=== PATIENT | female | born 1970 | race American Indian/Alaskan Native ===

== ENCOUNTER 2017-09-12 09:12 | Emergency (ER) | payer OTHER ==
[2017-09-12] MEDS ORDERED: ZOFRAN ODT ONE (09:38)
[2017-09-12] MEDS ORDERED: ZOFRAN ODT PO ONE (09:42)
[2017-09-12 10:01] LABS: Basophils # (Auto) 0.2 K/mm3 (0.0-0.1); Basophils % (Auto) 1.4 % (0.0-1.8); Eosinophils # (Auto) 0.1 K/mm3 (0.0-0.4); Eosinophils % (Auto) 0.4 % (0.0-4.3); Hematocrit 44.1 % (30.3-42.9); Hemoglobin 14.5 gm/dl (10.1-14.3); Lymphocytes # (Auto) 1.7 K/mm3 (1.2-5.4); Mean Corpuscular HGB Conc 33 % (30-34); Mean Corpuscular Hemoglobin 30 pg (28-32); Mean Corpuscular Volume 89 fl (79-97); Monocytes # (Auto) 0.5 K/mm3 (0.0-0.8); Monocytes % (Auto) 3.2 % (0.0-7.3); Platelet Count 332 K/mm3 (140-440); Red Blood Count 4.94 M/mm3 (3.65-5.03); Red Cell Distribution Width 14.7 % (13.2-15.2)
[2017-09-12 10:15] LABS: Alanine Aminotransferase 8 units/L (7-56); Albumin 4.3 g/dL (3.9-5); BUN/Creatinine Ratio 17; Blood Urea Nitrogen 10 mg/dL (7-17); Calcium 9.6 mg/dL (8.4-10.2); Hemolysis Index 16
[2017-09-12] MEDS ORDERED: NACL 0.9% 1000 ML 1,000 ML IV ONE (10:30)
[2017-09-12] MEDS ORDERED: APRESOLINE IV ONE (10:31)
[2017-09-12] MEDS ORDERED: MORPHINE IV ONE (11:12)
[2017-09-12] MEDS ORDERED: ZOFRAN IV ONE ×2 (11:12→13:51)
[2017-09-12] MEDS ORDERED: MORPHINE ONE (11:13)
[2017-09-12] MEDS ORDERED: ZOFRAN ONE ×2 (11:13→13:52)
--- NOTE | 2017-09-12 12:44 | Emergency Department Report ---
HPI - General Chief Complaint: Abdominal Pain Time Seen by Provider: 09/12/17 10:04 - HPI HPI: The patient is a 46-year-old female who presents for evaluation of abdominal pain. The patient reports left lower abdominal pain since yesterday afternoon, approximately 24 hours prior to my evaluation. Her pain is moderate in severity , crampy in quality, exacerbated with retching, and associated with nausea, vomiting, and loose watery stools. The patient denies fever, chills, night sweats, blood in the stool, dark tarry stool, dysuria, hematuria, flank pain, genital discharge, inability to pass flatus. ED Past Medical Hx - Past Medical History Hx Hypertension: Yes Hx Congestive Heart Failure: No Hx Diabetes: No Hx Asthma: No Hx COPD: No - Surgical History Additional Surgical History: X 5 - Social History Smoking Status: Current Every Day Smoker Substance Use Type: Alcohol - Medications Home Medications: Home Medications Medication Instructions Recorded Confirmed Last Taken Type Ciprofloxacin HCl [Ciprofloxacin 500 mg PO Q12H #14 tab 09/12/17 Unknown Rx TAB] Ondansetron [Zofran TAB] 4 mg PO Q8HR PRN #20 tablet 09/12/17 Unknown Rx metroNIDAZOLE [Flagyl] 500 mg PO Q12HR #14 tab 09/12/17 Unknown Rx traMADol [Ultram 50 MG tab] 50 mg PO Q6HR PRN #15 tablet 09/12/17 Unknown Rx ED Review of Systems ROS: Stated complaint: ABD Other details as noted in HPI Constitutional: denies: fever ENT: denies: throat or neck pain Respiratory: denies: cough, shortness of breath Cardiovascular: denies: chest pain Endocrine: denies unexplained weight loss or gain Gastrointestinal: reports abdominal pain, nausea Genitourinary: denies: dysuria Musculoskeletal: denies: leg swelling Skin: denies: rash Neurological: denies: headache Hematological/Lymphatic: denies: easy bleeding or easy bruising Psych: denies sadness or hopelessness Physical Exam - Physical Exam Vital Signs: Vital Signs 09/12/17 09/12/17 09/12/17 09:34 10:03 10:15 Temperature 97.4 F L Pulse Rate 67 Respiratory 20 18 Rate Blood Pressure 196/121 Blood Pressure [Left] O2 Sat by Pulse 100 100 Oximetry 09/12/17 09/12/17 09/12/17 10:16 10:17 10:30 Temperature Pulse Rate 62 59 L Respiratory 19 20 Rate Blood Pressure 150/119 150/119 Blood Pressure 150/119 [Left] O2 Sat by Pulse 100 100 100 Oximetry 09/12/17 09/12/17 09/12/17 10:46 10:52 11:00 Temperature Pulse Rate 63 71 Respiratory 18 Rate Blood Pressure 150/119 150/119 150/119 Blood Pressure [Left] O2 Sat by Pulse 100 100 Oximetry Physical Exam: General: well-nourished, well-developed, no acute distress Head: Normocephalic, atraumatic Eyes: normal sclera ENT: Mucous membranes are pale and dry Neck: No neck stiffness, no cervical adenopathy Respiratory: Breath sounds equal bilaterally, no wheezing, rales, or rhonchi Cardio: S1 and S2 present, no murmurs, rubs, gallops, capillary refill is delayed Abdomen: Normoactive bowel sounds, soft abdomen, left upper quadrant tenderness to palpation present, no rigidity, no guarding or rebound tenderness Chest WALL/Back: No tenderness to palpation of the chest wall, no CVA tenderness with percussion Musc: No pitting edema Skin: No rash Neuro: no facial drooping, normal speech Psych: Normal affect ED Course Vital Signs 09/12/17 09/12/17 09/12/17 09:34 10:03 10:15 Temperature 97.4 F L Pulse Rate 67 Respiratory 20 18 Rate Blood Pressure 196/121 Blood Pressure [Left] O2 Sat by Pulse 100 100 Oximetry 09/12/17 09/12/17 09/12/17 10:16 10:17 10:30 Temperature Pulse Rate 62 59 L Respiratory 19 20 Rate Blood Pressure 150/119 150/119 Blood Pressure 150/119 [Left] O2 Sat by Pulse 100 100 100 Oximetry 09/12/17 09/12/17 09/12/17 10:46 10:52 11:00 Temperature Pulse Rate 63 71 Respiratory 18 Rate Blood Pressure 150/119 150/119 150/119 Blood Pressure [Left] O2 Sat by Pulse 100 100 Oximetry ED Medical Decision Making - Lab Data Result diagrams: 09/12/17 09:40 09/12/17 09:40 - Medical Decision Making The patient was seen and examined by myself. The patient is placed on a equipment monitor phototypesetting and continuous pulse ox. On initial evaluation, the patient was found to be in no distress. Evaluation orders were placed. The patient is given IV normal saline fluid bolus, Zofran for nausea, and IV pain medicine. Lab results revealed mildly elevated WBC 15, and elevated hemoglobin and hematocrit, suggestive of hemoconcentration consistent with exam findings of dehydration. Otherwise lab results are concerning including negative test, and normal LFTs, lipase, urinalysis. The patient denies fever, headache, neck pain, paresthesias, focal motor weakness, blurry vision, ear pain, tinnitus , chest pain, hemoptysis, dyspnea, abdominal pain, confusion or altered mental status, or recent URI or diarrhea. Critical care attestation.: If time is entered above; I have spent that time in minutes in the direct care of this critically ill patient, excluding procedure time. ED Disposition Clinical Impression: Acute abdominal pain in left lower quadrant, Nausea and vomiting in adult patient, Dehydration, mild Disposition: DC-01 TO HOME OR SELFCARE Is pt being admited?: No Does the pt Need Aspirin: No Condition: Stable Instructions: Abdominal Pain (ED), Gastroenteritis (ED), Acute Nausea and Vomiting (ED), Food Poisoning (ED) Referrals: PRIMARY CARE, [Primary Care Provider] - 3-5 Days Time of Disposition: 14:39
[2017-09-12 14:01] VITALS: BP 169/83
[2017-09-12 14:32] LABS: Bacteria,Urine 1+ /HPF (Negative); Bilirubin,Urine NEG (Negative); Blood,Urine LG (Negative); Color,Urine Red (Yellow); Mucus,Urine FEW /HPF; Urobilinogen,Urine < 2.0 mg/dL (<2.0)
== END 2017-09-12 15:17 | disposition home or self-care (01) ==
LOC: ED 09:12
DX: E86.0 Dehydration (principal); R10.32 Left lower quadrant pain; R11.2 Nausea with vomiting, unspecified; I10 Essential (primary) hypertension; F17.200 Nicotine dependence, unspecified, uncomplicated
CPT/HCPCS: 36415; 80053; 81001; 84703; 85025; 96361; 96374; 96375; 96376; 99284; J0360; J2270; J2405; J7030; Q0162

== ENCOUNTER 2017-09-14 11:05 | Emergency (ER) | payer SELFPAY ==
[2017-09-14 11:56] LABS: Basophils # (Auto) 0.2 K/mm3 (0.0-0.1); Basophils % (Auto) 1.1 % (0.0-1.8); Eosinophils % (Auto) 0.3 % (0.0-4.3); Hematocrit 44.9 % (30.3-42.9); Hemoglobin 14.8 gm/dl (10.1-14.3); Lymphocytes # (Auto) 2.1 K/mm3 (1.2-5.4); Lymphocytes % (Auto) 14.6 % (13.4-35.0); Mean Corpuscular HGB Conc 33 % (30-34); Mean Corpuscular Hemoglobin 29 pg (28-32); Mean Corpuscular Volume 89 fl (79-97); Monocytes # (Auto) 0.7 K/mm3 (0.0-0.8); Monocytes % (Auto) 5.1 % (0.0-7.3); Platelet Count 403 K/mm3 (140-440); Red Blood Count 5.07 M/mm3 (3.65-5.03); Red Cell Distribution Width 14.5 % (13.2-15.2)
[2017-09-14 12:10] LABS: Alanine Aminotransferase 8 units/L (7-56); Albumin 4.4 g/dL (3.9-5); BUN/Creatinine Ratio 27; Blood Urea Nitrogen 19 mg/dL (7-17); Calcium 10.2 mg/dL (8.4-10.2); Hemolysis Index 7
[2017-09-14] MEDS ORDERED: BENTYL IM ONE (13:48)
[2017-09-14] MEDS ORDERED: NACL 0.9% 1000 ML 1,000 ML IV ONE (13:48)
[2017-09-14] MEDS ORDERED: TORADOL IV ONE (13:48)
[2017-09-14] MEDS ORDERED: ZOFRAN IV ONE (13:48)
--- NOTE | 2017-09-14 13:51 | Emergency Department Report ---
Blank Doc - Documentation Documentation: Vision is a 46-year-old female past medical history of hypertension who is presenting with abdominal pain. Patient states pain started approximately 3 days ago and crampy diffuse with nausea vomiting. Patient denies any diarrhea or fever or cough. Patient states that the pain is a 8 out of 10 in severity and is constant. There is no radiation. She states she was here 2 days ago and was hydrated and given pains meds but the pain is returned she's come back for evaluation.
--- NOTE | 2017-09-14 14:53 | Cat Scan Report ---
CT ABDOMEN PELVIS WITH CONTRAST: HISTORY: Abdominal pain, nausea and vomiting. COMPARISON: none. TECHNIQUE: Helical CT in 1.25mm intervals following IV contrast. Sagittal and coronal reconstructions. FINDINGS: Lung bases: Normal. Liver: Normal. 2 cm cyst in the right hepatic lobe is noted Biliary system: Normal. Pancreas: Normal. Spleen: Normal. Kidneys/ureters/bladder: Normal. Adrenal glands: Normal. Aorta: Normal. Intestines: Normal. Appendix: Normal. Pelvic viscera: The uterus is mildly enlarged with scattered uterine fibroids near the uterine fundus. The ovaries are unremarkable. Ascites: None. Adenopathy: None. Musculoskeletal: Normal. IMPRESSION: No acute inflammatory process is appreciated. Mild uterine fibroid disease.
--- NOTE | 2017-09-14 16:30 | Emergency Department Report ---
Vomiting/Diarrhea - HPI Chief Complaint: Abdominal Pain Stated Complaint: N/V ABD PAIN Time Seen by Provider: 09/14/17 13:37 Duration: Today Severity: moderate Nausea/Vomiting Severity: Moderate Diarrhea Severity: Mild Pain Location: Generalized Pain Severity: Moderate Symptoms: Yes Watery Diarrhea (once), Yes Able to Tolerate Fluids, Yes Recent use of Antibiotics (Currently taking flagyl and cipro), No Bloody diarrhea, No Fever, No Recent Unusual Foods, No Recent Untreated Water, No Family w/ Similar Symptoms, No Contacts w/ Similar Symptoms, No Rash, No Hematuria, No Recent URI Symptoms Other History: This is a 46 y.o. female that presents with nausea and vomiting since this morning. Patient reports being treated for gastritis Sunday with metronidazole and cipro. She woke up this morning and ate fruit then took medication and felt bad every since. Pain and nausea started 30 minutes after taking medication. Stomach is hurting everywhere. She had one episode of diarrhea here in ER but none prior. Denies chest pain, SOB, fever, bloody stool , and urgency or frequency. ED Review of Systems ROS: Stated complaint: N/V ABD PAIN Other details as noted in HPI Constitutional: denies: chills, fever Respiratory: denies: cough, shortness of breath, wheezing Cardiovascular: denies: chest pain, palpitations Gastrointestinal: abdominal pain, nausea. denies: vomiting, diarrhea, constipation Musculoskeletal: denies: back pain, joint swelling, arthralgia Skin: denies: rash, lesions Neurological: denies: headache, weakness, paresthesias Psychiatric: denies: anxiety, depression ED Past Medical Hx - Past Medical History Hx Hypertension: Yes Hx Congestive Heart Failure: No Hx Diabetes: No Hx Asthma: No Hx COPD: No - Surgical History Additional Surgical History: X 5 - Social History Smoking Status: Current Every Day Smoker Substance Use Type: Alcohol - Medications Home Medications: Home Medications Medication Instructions Recorded Confirmed Last Taken Type Ciprofloxacin HCl [Ciprofloxacin 500 mg PO Q12H #14 tab 09/12/17 Unknown Rx TAB] Ondansetron [Zofran TAB] 4 mg PO Q8HR PRN #20 tablet 09/12/17 Unknown Rx metroNIDAZOLE [Flagyl] 500 mg PO Q12HR #14 tab 09/12/17 Unknown Rx traMADol [Ultram 50 MG tab] 50 mg PO Q6HR PRN #15 tablet 09/12/17 Unknown Rx Metoprolol Tartrate 25 mg PO BID #30 tablet 09/14/17 Unknown Rx Vomiting Diarrhea Exam - Exam General: Vital signs noted. No distress. Alert and acting appropriately. HEENT: Yes Pharyngeal Erythema, Yes Moist Mucous Membranes, No Pharyngeal Exudates, No Rhinorrhea, No Conjuctival Injection, No Frontal Tenderness, No Maxillary Tenderness Neck: No Adenopathy, No Rigidity Lungs: Yes Clear Lung Sounds, Yes Good Air Exchange, Yes Cough, No Wheezes, No Stridor, No Nasal Flaring, No Retractions, No Use of Accessory Muscles Heart exam: Regular: Yes, Murmur: No, Tachycardia: No Abdomen: Tenderness: Yes (LLQ), Peritoneal Signs: No, Distention: No, Hyperactive Bowel sounds: No Skin exam: Rash: No, Edema: No, Normal turgor: Yes Neurologic: Alert and oriented, no deficits. Musculoskeletal: Unremarkable. ED Course Vital Signs 09/14/17 09/14/17 11:33 15:24 Temperature 98.5 F Pulse Rate 98 H 74 Respiratory 18 16 Rate Blood Pressure 175/101 Blood Pressure 194/119 [Left] O2 Sat by Pulse 100 97 Oximetry ED Medical Decision Making - Lab Data Result diagrams: 09/14/17 11:43 09/14/17 11:43 - Radiology Data Radiology results: report reviewed IMPRESSION: No acute inflammatory process is appreciated. Mild uterine fibroid disease. - Medical Decision Making 46 y.o. female that presents with abdominal pain, nausea and vomiting since this morning. Patient examined by me, slightly distressed. Blood pressure elevated. Given hydralazine 20 mg IV, normal saline IV 1L bolus. Vitals stable. CT of abdomen and pelvis obtained. Patient informed of uterine fibroids. Obtained CBC, UA, & CMP, WBC elevated. Currently taking metronidazole and cipro for gastritis. Continue taking zofran for nausea. Referred to [facility]. Discharged home. Follow up with [facility] in 48-72 hours. Critical care attestation.: If time is entered above; I have spent that time in minutes in the direct care of this critically ill patient, excluding procedure time. ED Disposition Clinical Impression: Nausea Gastritis Qualifiers: Gastritis type: other gastritis Chronicity: acute Gastritis bleeding: without bleeding Qualified Code(s): K29.00 - Acute gastritis without bleeding Hypertension Qualifiers: Hypertension type: essential hypertension Qualified Code(s): I10 - Essential ( primary) hypertension Disposition: TO HOME OR SELFCARE Is pt being admited?: No Does the pt Need Aspirin: No Condition: Stable Instructions: Abdominal Pain (ED), Hypertension (ED), Acute Nausea and Vomiting (ED) Additional Instructions: Start bland diet such as bread, rice, applesauce, and toast. Take zofran for nausea as needed. Take metoprolol 25 mg by oral twice a day and follow up with primary care provider in 24-72 hours. Return to ER if chest pain, fever, nausea or vomiting uncontrolled, blood pressure uncontrolled, and severe abdominal pain. Prescriptions: Metoprolol Tartrate 25 mg PO BID #30 tablet Referrals: [facility] [Outside] - 3-5 Days [facility] [Outside] - 3-5 Days [facility] [Outside] - 3-5 Days Time of Disposition: 16:46 Print Language: GREEK
[2017-09-14] MEDS ORDERED: GEODON IM ONE (16:31)
[2017-09-14] MEDS ORDERED: APRESOLINE IV ONE (16:41)
[2017-09-14 16:53] LABS: Bilirubin,Urine NEG (Negative); Blood,Urine LG (Negative); Color,Urine Yellow (Yellow); Mucus,Urine FEW /HPF; Protein,Urine <15 mg/dL mg/dL (Negative); Urobilinogen,Urine < 2.0 mg/dL (<2.0)
[2017-09-14 18:02] VITALS: BP 137/108
== END 2017-09-14 18:51 | disposition home or self-care (01) ==
LOC: ED 11:05
DX: K29.00 Acute gastritis without bleeding (principal); I10 Essential (primary) hypertension; F17.200 Nicotine dependence, unspecified, uncomplicated
CPT/HCPCS: 36415; 74177; 80053; 81001; 85025; 96361; 96372; 96374; 96375; 99284; J0360; J0500; J1885; J2405; J3486; J7030; Q9967

== ENCOUNTER 2018-01-04 18:45 | Emergency (ER) | payer SELFPAY ==
[2018-01-04 19:56] LABS: Basophils # (Auto) 0.1 K/mm3 (0.0-0.1); Basophils % (Auto) 0.8 % (0.0-1.8); Eosinophils # (Auto) 0.1 K/mm3 (0.0-0.4); Eosinophils % (Auto) 0.6 % (0.0-4.3); Hematocrit 47.3 % (30.3-42.9); Hemoglobin 15.5 gm/dl (10.1-14.3); Lymphocytes # (Auto) 1.9 K/mm3 (1.2-5.4); Lymphocytes % (Auto) 16.1 % (13.4-35.0); Mean Corpuscular HGB Conc 33 % (30-34); Mean Corpuscular Hemoglobin 29 pg (28-32); Mean Corpuscular Volume 88 fl (79-97); Monocytes # (Auto) 0.7 K/mm3 (0.0-0.8); Monocytes % (Auto) 6.1 % (0.0-7.3); Platelet Count 366 K/mm3 (140-440); Red Blood Count 5.41 M/mm3 (3.65-5.03)
[2018-01-04 20:12] LABS: Albumin 4.3 g/dL (3.9-5); Calcium 10.8 mg/dL (8.4-10.2)
[2018-01-05] MEDS ORDERED: MORPHINE IV ONE (00:48)
[2018-01-05] MEDS ORDERED: NACL 0.9% 1000 ML 1,000 ML IV ONE (00:48)
[2018-01-05] MEDS ORDERED: ZOFRAN IV ONE (00:49)
--- NOTE | 2018-01-05 01:11 | Emergency Department Report ---
HPI - General Chief Complaint: Abdominal Pain Time Seen by Provider: 01/05/18 00:41 - HPI HPI: 47-year-old female presents to the emergency department with complaint of a 4 day history of nausea, vomiting and some left lower quadrant abdominal pain. The patient went to [facility] a few days ago and says she was diagnosed with a uterine fibroid but was not given any pain or nausea medications. She otherwise has a history of hypertension but has not taken any medications for it in the past year. She does not have a primary care physician. She has not taken anything for her symptoms prior to presentation. No recent travel or sick contacts at home. She denies any fever, vaginal bleeding or discharge, dysuria, constipation or diarrhea. ED Past Medical Hx - Past Medical History Hx Hypertension: Yes Hx Congestive Heart Failure: No Hx Diabetes: No Hx Asthma: No Hx COPD: No - Surgical History Additional Surgical History: X 5 - Social History Smoking Status: Current Every Day Smoker Substance Use Type: Marijuana - Medications Home Medications: Home Medications Medication Instructions Recorded Confirmed Last Taken Type Ciprofloxacin HCl [Ciprofloxacin 500 mg PO Q12H #14 tab 09/12/17 Unknown Rx TAB] Ondansetron [Zofran TAB] 4 mg PO Q8HR PRN #20 tablet 09/12/17 Unknown Rx metroNIDAZOLE [Flagyl] 500 mg PO Q12HR #14 tab 09/12/17 Unknown Rx traMADol [Ultram 50 MG tab] 50 mg PO Q6HR PRN #15 tablet 09/12/17 Unknown Rx Metoprolol Tartrate 25 mg PO BID #30 tablet 09/14/17 Unknown Rx Amlodipine Besylate [Norvasc] 10 mg PO QDAY #30 tablet 01/05/18 Unknown Rx Ondansetron [Zofran Odt] 4 mg PO Q8H PRN #10 tab.rapdis 01/05/18 Unknown Rx ED Review of Systems ROS: Stated complaint: LOVELY/ABD PAIN Other details as noted in HPI Comment: All other systems reviewed and negative Constitutional: denies: chills, fever Eyes: denies: eye pain, eye discharge, vision change ENT: denies: ear pain, throat pain Respiratory: denies: cough, shortness of breath, wheezing Cardiovascular: denies: chest pain, palpitations Gastrointestinal: abdominal pain, nausea, vomiting Genitourinary: denies: urgency, dysuria, discharge Musculoskeletal: denies: back pain, joint swelling, arthralgia Skin: denies: rash, lesions Neurological: denies: headache, weakness, paresthesias Physical Exam - Physical Exam Vital Signs: Vital Signs 01/04/18 01/04/18 01/05/18 18:54 19:00 00:26 Temperature 98.8 F 98.8 F Pulse Rate 107 H 90 Respiratory 22 18 Rate Blood Pressure 152/119 182/116 [Right] O2 Sat by Pulse 100 98 Oximetry Physical Exam: GENERAL: The patient is well-developed well-nourished. HENT: Normocephalic. Atraumatic. Patient has moist mucous membranes. EYES: Extraocular motions are intact. Pupils equal reactive to light bilaterally. NECK: Supple. Trachea is midline. CHEST/LUNGS: Clear to auscultation. There is no respiratory distress noted. HEART/CARDIOVASCULAR: Regular. There is no tachycardia. There is no murmur. ABDOMEN: Abdomen is soft. There is some lower abdominal tenderness palpation. No guarding. Patient has normal bowel sounds. There is no abdominal distention. SKIN: Skin is warm and dry. NEURO: The patient is awake, alert, and oriented. The patient is cooperative. The patient has no focal neurologic deficits. The patient has normal speech. MUSCULOSKELETAL: There is no tenderness or deformity. There is no limitation range of motion. There is no evidence of acute injury. ED Course Vital Signs 01/04/18 01/04/18 01/05/18 18:54 19:00 00:26 Temperature 98.8 F 98.8 F Pulse Rate 107 H 90 Respiratory 22 18 Rate Blood Pressure 152/119 182/116 [Right] O2 Sat by Pulse 100 98 Oximetry ED Medical Decision Making - Lab Data Result diagrams: 01/04/18 19:27 01/04/18 19:27 - Radiology Data Radiology results: report reviewed, image reviewed interpreted by me: Abdominal x-ray shows nonspecific nonobstructive bowel gas CT of the abdomen and pelvis without contrast does not show any acute process. - Medical Decision Making Patient presents with a few days of some lower abdominal pain, mostly to the left lower quadrant, as well as some nausea and vomiting. She previously had an ultrasound that showed that she has a fibroid in that area. Patient's labs were mostly unremarkable and did not show any etiology of her symptoms. The one main abnormality from the labs was the patient's renal insufficiency with a creatinine of 1.5 and a GFR of 45. The patient has a history of hypertension and of medication noncompliance, at least for the past year. She presents with some elevated blood pressure and this may be the reason for the patient's renal insufficiency. There does not appear to be any obstructive uropathy patient has no difficulty with urination. Patient was given IV fluid, pain medication, nausea medication and eventually some blood pressure medication. The blood pressures come down to a more reasonable level. We discussed tobacco cessation , staying away from foods that are high in salt and caffeinated products, keeping a blood pressure log, and the patient will be started on Norvasc. She has been given multiple referrals for primary care. She was reevaluated multiple times for multiple hours and appears to be feeling better and is resting comfortably. However she has been encouraged to return to the emergency Department with any worsening of her symptoms or any acute distress. Dictation software was used for certain portions of this chart and therefore there may be some dictation errors within these notes. - Differential Diagnosis gastroenteritis, food poisoning, diverticulitis, fibroids Critical Care Time: No Critical care attestation.: If time is entered above; I have spent that time in minutes in the direct care of this critically ill patient, excluding procedure time. ED Disposition Clinical Impression: Tobacco use, Noncompliance with medication regimen, Renal insufficiency Hypertension Qualifiers: Hypertension type: essential hypertension Qualified Code(s): I10 - Essential ( primary) hypertension Abdominal pain Qualifiers: Abdominal location: lower abdomen, unspecified Qualified Code(s): R10.30 - Lower abdominal pain, unspecified Nausea & vomiting Qualifiers: Vomiting type: unspecified Vomiting Intractability: non-intractable Qualified Code(s): R11.2 - Nausea with vomiting, unspecified Disposition: DC-01 TO HOME OR SELFCARE Is pt being admited?: No Condition: Stable Instructions: How to Stop Smoking (ED), Acute Nausea and Vomiting (ED), Abdominal Pain (ED), Hypertension (ED), Impaired Kidney Function (ED) Additional Instructions: Please follow up with a primary care physician in the next few days. Return to the emergency Department with any worsening of your symptoms or any acute distress. I am starting on a blood pressure medication called Norvasc that is to be taken once daily, usually in the morning. Try and stay away from foods that are high in salt and caffeinated products to help with your blood pressure. Keep a blood pressure log. Please try and quit smoking. Prescriptions: Amlodipine Besylate [Norvasc] 10 mg PO QDAY #30 tablet Ondansetron [Zofran Odt] 4 mg PO Q8H PRN #10 tab.rapdis PRN Reason: Nausea Referrals: PRIMARY CAREMD [Primary Care Provider] - 3-5 Days [facility] MD [Staff Physician] - 3-5 Days [facility] [Outside] - 3-5 Days Time of Disposition: 06:37
--- NOTE | 2018-01-05 04:40 | Cat Scan Report ---
FINAL REPORT EXAM: CT ABDOMEN PELVIS WO CON HISTORY: Abd pain TECHNIQUE: CT images obtained through the Abdomen and Pelvis without contrast. Transaxial,coronal and sagittal for the reformats are provided. PRIORS: None. FINDINGS: Imaged intrathoracic contents are unremarkable. Kidneys are normal in size, axis and position. No hydroureteronephrosis. Nonobstructive 2 millimeter left renal calcifications. No stones are seen within the urinary bladder. Lobular anteverted and retroflexed uterus. Pelvic phleboliths are present. A 19 millimeter benign-appearing low-density lesion is present in the posterior right liver. The liver, gallbladder, pancreas, spleen, and adrenal glands otherwise demonstrate a normal noncontrast appearance. Hollow enteric organs are normal in course and caliber. Appendix is normal. No intra-abdominal free air/fluid or lymphadenopathy. Aorta is normal in course and caliber. Superficial soft tissues are unremarkable. No acute or aggressive appearing skeletal findings. IMPRESSION: No CT evidence of obstructive urolithiasis or other acute abdominal or pelvic findings.
[2018-01-05] MEDS ORDERED: NORMODYNE IV ONE (04:54)
[2018-01-05 06:06] LABS: Bilirubin,Urine NEG (Negative); Blood,Urine LG (Negative); Color,Urine Yellow (Yellow); Mucus,Urine 1+ /HPF; Protein,Urine <15 mg/dL mg/dL (Negative); Urobilinogen,Urine < 2.0 mg/dL (<2.0)
--- NOTE | 2018-01-05 06:09 | XRay Report ---
FINAL REPORT EXAM: XR ABDOMEN 2V HISTORY: Abd pain COMPARISONS: CT abdomen and pelvis of the same date FINDINGS: Upright and supine AP views of the abdomen and pelvis No pneumoperitoneum. The bowel gas pattern is nonobstructive. No pathologic calcification or fracture. Multiple pelvic phleboliths. IMPRESSION: No acute findings.
[2018-01-05] MEDS ORDERED: APRESOLINE ONE (06:22)
[2018-01-05] MEDS ORDERED: APRESOLINE IV ONE (06:30)
[2018-01-05 07:01] VITALS: BP 159/84
== END 2018-01-05 06:56 | disposition home or self-care (01) ==
LOC: ED 18:45
DX: R10.30 Lower abdominal pain, unspecified (principal); R11.2 Nausea with vomiting, unspecified; F17.200 Nicotine dependence, unspecified, uncomplicated; Z91.14 Patient's other noncompliance with medication regimen; N28.9 Disorder of kidney and ureter, unspecified; I10 Essential (primary) hypertension; F12.10 Cannabis abuse, uncomplicated
CPT/HCPCS: 36415; 74019; 74176; 80053; 81001; 84703; 85025; 96361; 96374; 96375; 99285; J0360; J2270; J2405; J7030

== ENCOUNTER 2018-02-14 10:55 | Emergency (ER) | payer SELFPAY ==
--- NOTE | 2018-02-14 12:32 | Emergency Department Report ---
ED Chest Pain HPI - General Chief Complaint: Chest Pain Stated Complaint: CHEST PAIN Time Seen by Provider: 02/14/18 12:02 Source: patient Mode of arrival: Ambulatory Limitations: No Limitations - History of Present Illness Initial Comments: This is a 47-year-old -[place] female presents with left sided chest pain for 3 days. Past medical history of hypertension. Patient is current one pack a day smoker. 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 Patient states it felt like something was jabbing her in her chest. Patient states pain is radiating from the left side of chest to left arm. Patient reports pain is 10 out of 10 on pain scale and sharp in intensity. Pain is intermittent. Patient is having some congestion and rhinorrhea with chest pain. She coughs frequently but thought that was associated with smoking. Patient denies fever, palpitations, shortness of breath, nausea or vomiting, and abdominal pain. MD Complaint: chest pain Onset/Timin -: days(s) Onset: during exertion Pain Location: left chest Pain Radiation: LUE Severity: severe Severity scale (0 -10): 10 Quality: aching, sharp Consistency: intermittent Improves With: rest, remaining still Worsens With: exertion re: diaphoresis Treatments Prior to Arrival: none Aspirin use within the Past 7 Days: (0) No - Related Data On Oral Contraceptives: No Previous Rx's Medication Instructions Recorded Last Taken Type Ciprofloxacin HCl [Ciprofloxacin 500 mg PO Q12H #14 tab 09/12/17 Unknown Rx TAB] Ondansetron [Zofran TAB] 4 mg PO Q8HR PRN #20 tablet 09/12/17 Unknown Rx metroNIDAZOLE [Flagyl] 500 mg PO Q12HR #14 tab 09/12/17 Unknown Rx traMADol [Ultram 50 MG tab] 50 mg PO Q6HR PRN #15 tablet 09/12/17 Unknown Rx Metoprolol Tartrate 25 mg PO BID #30 tablet 09/14/17 Unknown Rx Amlodipine Besylate [Norvasc] 10 mg PO QDAY #30 tablet 01/05/18 Unknown Rx Ondansetron [Zofran Odt] 4 mg PO Q8H PRN #10 tab.rapdis 01/05/18 Unknown Rx ALBUTEROL Inhaler [ProAir HFA 1 puff IH Q4-6H #1 inha 02/14/18 Unknown Rx Inhaler] Azithromycin [Zithromax Z-JOHN] 250 mg PO DAILY #6 tablet 02/14/18 Unknown Rx Cyclobenzaprine HCl [Flexeril 5 MG 5 mg PO TID PRN #12 tab 02/14/18 Unknown Rx TAB] Ibuprofen [Motrin 800 MG tab] 800 mg PO Q8HR PRN #15 tablet 02/14/18 Unknown Rx Allergies Allergy/AdvReac Type Severity Reaction Status Date / Time No Known Allergies Allergy Verified 09/14/17 11:33 Heart Score - HEART Score History: Slightly suspicious EKG: Normal Age: 45-65 Risk factors: 1-2 risk factors Troponin: < normal limit HEART Score: 2 ED Review of Systems ROS: Stated complaint: CHEST PAIN Other details as noted in HPI Constitutional: denies: chills, fever Respiratory: denies: cough, shortness of breath, wheezing Cardiovascular: chest pain (left-sided chest pain). denies: palpitations, dyspnea on exertion, edema, syncope Gastrointestinal: denies: abdominal pain, nausea, vomiting, diarrhea Neurological: denies: headache, weakness, numbness, paresthesias Psychiatric: denies: anxiety, depression ED Past Medical Hx - Past Medical History Previous Medical History?: Yes Hx Hypertension: Yes Hx Congestive Heart Failure: No Hx Diabetes: No Hx Asthma: No Hx COPD: No - Surgical History Past Surgical History?: Yes Additional Surgical History: X 5 - Social History Smoking Status: Never Smoker - Medications Home Medications: Home Medications Medication Instructions Recorded Confirmed Last Taken Type Ciprofloxacin HCl [Ciprofloxacin 500 mg PO Q12H #14 tab 09/12/17 Unknown Rx TAB] Ondansetron [Zofran TAB] 4 mg PO Q8HR PRN #20 tablet 09/12/17 Unknown Rx metroNIDAZOLE [Flagyl] 500 mg PO Q12HR #14 tab 09/12/17 Unknown Rx traMADol [Ultram 50 MG tab] 50 mg PO Q6HR PRN #15 tablet 09/12/17 Unknown Rx Metoprolol Tartrate 25 mg PO BID #30 tablet 09/14/17 Unknown Rx Amlodipine Besylate [Norvasc] 10 mg PO QDAY #30 tablet 01/05/18 Unknown Rx Ondansetron [Zofran Odt] 4 mg PO Q8H PRN #10 tab.rapdis 01/05/18 Unknown Rx ALBUTEROL Inhaler [ProAir HFA 1 puff IH Q4-6H #1 inha 02/14/18 Unknown Rx Inhaler] Azithromycin [Zithromax Z-JOHN] 250 mg PO DAILY #6 tablet 02/14/18 Unknown Rx Cyclobenzaprine HCl [Flexeril 5 MG 5 mg PO TID PRN #12 tab 02/14/18 Unknown Rx TAB] Ibuprofen [Motrin 800 MG tab] 800 mg PO Q8HR PRN #15 tablet 02/14/18 Unknown Rx ED Physical Exam - General Limitations: No Limitations General appearance: alert, in no apparent distress - ENT ENT exam: Present: mucous membranes moist, other (turbinates mildly congested with clear discharge) - Respiratory Respiratory exam: Present: normal lung sounds bilaterally, chest wall tenderness (tenderness along costocondral joint on left). Absent: respiratory distress - Cardiovascular Cardiovascular Exam: Present: regular rate, normal rhythm. Absent: systolic murmur, diastolic murmur, rubs, gallop - GI/Abdominal GI/Abdominal exam: Present: soft, normal bowel sounds. Absent: organomegaly, mass - Neurological Exam Neurological exam: Present: alert, oriented X3 - Psychiatric Psychiatric exam: Present: normal affect, normal mood - Skin Skin exam: Present: warm, dry, intact, normal color. Absent: rash ED Course Vital Signs 02/14/18 02/14/18 02/14/18 11:00 12:50 13:06 Temperature 99.1 F 98.5 F Pulse Rate 83 82 Respiratory 16 18 16 Rate Blood Pressure 141/101 Blood Pressure 140/100 [Left] O2 Sat by Pulse 98 99 Oximetry 02/14/18 13:07 Temperature Pulse Rate 82 Respiratory Rate Blood Pressure 144/100 Blood Pressure [Left] O2 Sat by Pulse Oximetry LUIS score - Luis Score Age > 65: (0) No Aspirin use within the Past 7 Days: (0) No 3 or more CAD Risk Factors: (1) Yes 2 or more Angina events in past 24 hrs: (0) No Known CAD with more than 50% Stenosis: (0) No Elevated Cardiac Markers: (0) No ST Deviation Greater than 0.5mm: (0) No LUIS Score: 1 ED Medical Decision Making - Lab Data Result diagrams: 02/14/18 12:42 02/14/18 12:45 Lab Results 02/14/18 02/14/18 02/14/18 Range/Units 12:42 12:45 12:45 WBC 12.1 H (4.5-11.0) K/mm3 RBC 5.06 H (3.65-5.03) M/mm3 Hgb 14.9 H (10.1-14.3) gm/dl Hct 44.1 H (30.3-42.9) % MCV 87 (79-97) fl MCH 29 (28-32) pg MCHC 34 (30-34) % RDW 16.1 H (13.2-15.2) % Plt Count 385 (140-440) K/mm3 Lymph % (Auto) 20.4 (13.4-35.0) % [place] % (Auto) 5.6 (0.0-7.3) % Eos % (Auto) 0.7 (0.0-4.3) % Baso % (Auto) 1.3 (0.0-1.8) % Lymph # 2.5 (1.2-5.4) K/mm3 Jerome # 0.7 (0.0-0.8) K/mm3 Eos # 0.1 (0.0-0.4) K/mm3 Baso # 0.2 H (0.0-0.1) K/mm3 Seg Neutrophils % 72.0 H (40.0-70.0) % Seg Neutrophils # 8.7 H (1.8-7.7) K/mm3 D-Dimer < 135.00 (0-234) ng/mlDDU Sodium 137 (137-145) mmol/L Potassium 4.0 (3.6-5.0) mmol/L Chloride 99.1 (98-107) mmol/L Carbon Dioxide 25 (22-30) mmol/L Anion Gap 17 mmol/L BUN 6 L (7-17) mg/dL Creatinine 0.7 (0.7-1.2) mg/dL Estimated GFR > 60 ml/min BUN/Creatinine Ratio 9 % Glucose 85 (65-100) mg/dL Calcium 10.3 H (8.4-10.2) mg/dL Total Bilirubin 0.40 (0.1-1.2) mg/dL AST 19 (5-40) units/L ALT 8 (7-56) units/L Alkaline Phosphatase 69 (35-129) units/L Total Creatine Kinase (30-135) units/L Troponin T (0.00-0.029) ng/mL Total Protein 7.1 (6.3-8.2) g/dL Albumin 4.0 (3.9-5) g/dL Albumin/Globulin Ratio 1.3 % 02/14/18 02/14/18 Range/Units 12:45 12:45 WBC (4.5-11.0) K/mm3 RBC (3.65-5.03) M/mm3 Hgb (10.1-14.3) gm/dl Hct (30.3-42.9) % MCV (79-97) fl MCH (28-32) pg MCHC (30-34) % RDW (13.2-15.2) % Plt Count (140-440) K/mm3 Lymph % (Auto) (13.4-35.0) % [place] % (Auto) (0.0-7.3) % Eos % (Auto) (0.0-4.3) % Baso % (Auto) (0.0-1.8) % Lymph # (1.2-5.4) K/mm3 Jerome # (0.0-0.8) K/mm3 Eos # (0.0-0.4) K/mm3 Baso # (0.0-0.1) K/mm3 Seg Neutrophils % (40.0-70.0) % Seg Neutrophils # (1.8-7.7) K/mm3 D-Dimer (0-234) ng/mlDDU Sodium (137-145) mmol/L Potassium (3.6-5.0) mmol/L Chloride (98-107) mmol/L Carbon Dioxide (22-30) mmol/L Anion Gap mmol/L BUN (7-17) mg/dL Creatinine (0.7-1.2) mg/dL Estimated GFR ml/min BUN/Creatinine Ratio % Glucose (65-100) mg/dL Calcium (8.4-10.2) mg/dL Total Bilirubin (0.1-1.2) mg/dL AST (5-40) units/L ALT (7-56) units/L Alkaline Phosphatase (35-129) units/L Total Creatine Kinase 127 (30-135) units/L Troponin T < 0.010 (0.00-0.029) ng/mL Total Protein (6.3-8.2) g/dL Albumin (3.9-5) g/dL Albumin/Globulin Ratio % - Radiology Data Radiology results: report reviewed CHEST 2 VIEWS INDICATION: Left-sided chest pain. COMPARISON: 02/19/2015. FINDINGS: PA and lateral chest radiographs demonstrate normal cardiomediastinal silhouette. Clear lungs. Intact bones. CONCLUSION: No acute disease in the chest, stable. Thank you for the opportunity to participate in this patient's care. - Medical Decision Making 47 y.o. female that presents with chest pain on left side of chest that is radiating to left arm for 3 days. Past medical history of hypertension and current one pack a day smoker. Patient examined by me and in no acute distress. Given [place] 5/325 mg po once in ER. Blood pressure slightly elevated , patient has not taken blood pressure medication. Given Norvasc 10 mg by mouth in ER. Obtained CMP, CBC, troponin, CK, and chest xray. WBC's is slightly elevated all of the labs within normal limits. Chest x-ray obtained and dictated by radiologist with no acute cardiopulmonary findings. Physical assessment findings of tenderness along costocondral joint on left. I will treat her bronchitis with azithromycin and albuterol inhaler. Start ibuprofen and flexeril for costochondritis. Discharged home stable. Return to work tomorrow. Follow-up with primary care provider in 2-3 days. Critical care attestation.: If time is entered above; I have spent that time in minutes in the direct care of this critically ill patient, excluding procedure time. ED Disposition Clinical Impression: Left sided chest pain, Acute costochondritis, Bronchitis Disposition: TO HOME OR SELFCARE Is pt being admited?: No Does the pt Need Aspirin: No Condition: Stable Instructions: Costochondritis (ED), Chronic Bronchitis (ED) Additional Instructions: Complete antibiotics as prescribed. Avoid drinking alcohol while taking antibiotics and for about 2 hours after completion. Take ibuprofen and flexeril as needed for pain control. Don't take flexeril while driving or operating heavy machinery, may cause drowsiness. Follow up with primary care provider in 24-72 hours. Return to ER if chest pain unresolved, shortness of breath, or difficulty breathing. Prescriptions: ALBUTEROL Inhaler [ProAir HFA Inhaler] 1 puff IH Q4-6H #1 inha Azithromycin [Zithromax Z-JOHN] 250 mg PO DAILY #6 tablet Cyclobenzaprine HCl [Flexeril 5 MG TAB] 5 mg PO TID PRN #12 tab PRN Reason: Muscle Spasm Ibuprofen [Motrin 800 MG tab] 800 mg PO Q8HR PRN #15 tablet PRN Reason: Pain, Moderate (4-6) Referrals: [facility] [Outside] - 3-5 Days [facility] [Outside] - 3-5 Days [facility] [Outside] - 3-5 Days Forms: Work/School Release Form(ED) Time of Disposition: 13:57 Print Language: [place]ISH
[2018-02-14] MEDS ORDERED: NORCO 5/325 PO ONE (12:44)
[2018-02-14] MEDS ORDERED: NORVASC PO ONE (12:51)
--- NOTE | 2018-02-14 12:53 | XRay Report ---
CHEST 2 VIEWS INDICATION: Left-sided chest pain. COMPARISON: 02/19/2015. FINDINGS: PA and lateral chest radiographs demonstrate normal cardiomediastinal silhouette. Clear lungs. Intact bones. CONCLUSION: No acute disease in the chest, stable. Thank you for the opportunity to participate in this patient's care.
[2018-02-14 13:08] VITALS: BP 144/100
[2018-02-14 13:19] LABS: Basophils # (Auto) 0.2 K/mm3 (0.0-0.1); Basophils % (Auto) 1.3 % (0.0-1.8); Eosinophils # (Auto) 0.1 K/mm3 (0.0-0.4); Eosinophils % (Auto) 0.7 % (0.0-4.3); Hematocrit 44.1 % (30.3-42.9); Hemoglobin 14.9 gm/dl (10.1-14.3); Lymphocytes # (Auto) 2.5 K/mm3 (1.2-5.4); Lymphocytes % (Auto) 20.4 % (13.4-35.0); Mean Corpuscular HGB Conc 34 % (30-34); Mean Corpuscular Hemoglobin 29 pg (28-32); Mean Corpuscular Volume 87 fl (79-97); Monocytes # (Auto) 0.7 K/mm3 (0.0-0.8); Monocytes % (Auto) 5.6 % (0.0-7.3); Platelet Count 385 K/mm3 (140-440); Red Blood Count 5.06 M/mm3 (3.65-5.03); Red Cell Distribution Width 16.1 % (13.2-15.2)
[2018-02-14 13:19] LABS: Alanine Aminotransferase 8 units/L (7-56); BUN/Creatinine Ratio 9; Blood Urea Nitrogen 6 mg/dL (7-17); Calcium 10.3 mg/dL (8.4-10.2); Hemolysis Index 38
== END 2018-02-14 14:13 | disposition home or self-care (01) ==
LOC: ED 10:55
DX: M94.0 Chondrocostal junction syndrome [Tietze] (principal); J40 Bronchitis, not specified as acute or chronic; I10 Essential (primary) hypertension
CPT/HCPCS: 36415; 71046; 80053; 82550; 84484; 85025; 85379; 93005; 93010

== ENCOUNTER 2018-08-19 11:05 | Emergency (ER) | payer SELFPAY ==
[2018-08-19 11:31] VITALS: BP 163/107
[2018-08-19] MEDS ORDERED: NACL 0.9% 1000 ML 1,000 ML IV ONE (14:06)
[2018-08-19] MEDS ORDERED: ZOFRAN IV ONE (14:06)
--- NOTE | 2018-08-19 14:09 | Emergency Department Report ---
ED General Adult HPI - General Chief complaint: Nausea/Vomiting/Diarrhea Stated complaint: DIZZY/VOMITING Time Seen by Provider: 08/19/18 13:56 Source: patient Mode of arrival: Wheelchair Limitations: No Limitations - History of Present Illness Initial comments: The patient presents to the emergency prompt chief complaint of acute nausea and vomiting with mild diarrhea for the last 3 days. Patient endorses sick contacts at home and complains of abdominal cramping but not linda abdominal pain. -: Sudden Location: abdomen Radiation: non-radiation Severity scale (0 -10): 2 Quality: dull, other (cramping) Consistency: constant Improves with: none Worsens with: none Associated Symptoms: denies other symptoms Treatments Prior to Arrival: none - Related Data Previous Rx's Medication Instructions Recorded Last Taken Type Ciprofloxacin HCl [Ciprofloxacin 500 mg PO Q12H #14 tab 09/12/17 Unknown Rx TAB] Ondansetron [Zofran TAB] 4 mg PO Q8HR PRN #20 tablet 09/12/17 Unknown Rx metroNIDAZOLE [Flagyl] 500 mg PO Q12HR #14 tab 09/12/17 Unknown Rx traMADol [Ultram 50 MG tab] 50 mg PO Q6HR PRN #15 tablet 09/12/17 Unknown Rx Metoprolol Tartrate 25 mg PO BID #30 tablet 09/14/17 Unknown Rx Amlodipine Besylate [Norvasc] 10 mg PO QDAY #30 tablet 01/05/18 Unknown Rx Ondansetron [Zofran Odt] 4 mg PO Q8H PRN #10 tab.rapdis 01/05/18 Unknown Rx ALBUTEROL Inhaler (OR & NICU) 1 puff IH Q4-6H #1 inha 02/14/18 Unknown Rx [ProAir HFA Inhaler] Azithromycin [Zithromax Z-JOHN] 250 mg PO DAILY #6 tablet 02/14/18 Unknown Rx Cyclobenzaprine HCl [Flexeril 5 MG 5 mg PO TID PRN #12 tab 02/14/18 Unknown Rx TAB] Ibuprofen [Motrin 800 MG tab] 800 mg PO Q8HR PRN #15 tablet 02/14/18 Unknown Rx Ondansetron [Zofran Odt] 4 mg PO Q6H PRN #12 tab.rapdis 08/19/18 Unknown Rx Promethazine [Phenergan TAB] 25 mg PO Q6HR PRN #20 tab 08/19/18 Unknown Rx traMADol [Ultram] 50 mg PO Q6HR PRN #20 tablet 08/19/18 Unknown Rx Allergies Allergy/AdvReac Type Severity Reaction Status Date / Time No Known Allergies Allergy Verified 09/14/17 11:33 ED Review of Systems ROS: Stated complaint: DIZZY/VOMITING Other details as noted in HPI Comment: All other systems reviewed and negative Constitutional: denies: chills, fever Eyes: denies: eye pain, eye discharge, vision change ENT: denies: ear pain, throat pain Respiratory: denies: cough, shortness of breath, wheezing Cardiovascular: denies: chest pain, palpitations Endocrine: no symptoms reported Gastrointestinal: nausea, vomiting. denies: abdominal pain, diarrhea Genitourinary: denies: urgency, dysuria, discharge Musculoskeletal: denies: back pain, joint swelling, arthralgia Skin: denies: rash, lesions Neurological: denies: headache, weakness, paresthesias Psychiatric: denies: anxiety, depression Hematological/Lymphatic: denies: easy bleeding, easy bruising ED Past Medical Hx - Past Medical History Previous Medical History?: Yes Hx Hypertension: Yes Hx Congestive Heart Failure: No Hx Diabetes: No Hx Asthma: No Hx COPD: No - Surgical History Past Surgical History?: Yes Additional Surgical History: X 5 - Social History Smoking Status: Current Every Day Smoker Substance Use Type: Marijuana - Medications Home Medications: Home Medications Medication Instructions Recorded Confirmed Last Taken Type Ciprofloxacin HCl [Ciprofloxacin 500 mg PO Q12H #14 tab 09/12/17 Unknown Rx TAB] Ondansetron [Zofran TAB] 4 mg PO Q8HR PRN #20 tablet 09/12/17 Unknown Rx metroNIDAZOLE [Flagyl] 500 mg PO Q12HR #14 tab 09/12/17 Unknown Rx traMADol [Ultram 50 MG tab] 50 mg PO Q6HR PRN #15 tablet 09/12/17 Unknown Rx Metoprolol Tartrate 25 mg PO BID #30 tablet 09/14/17 Unknown Rx Amlodipine Besylate [Norvasc] 10 mg PO QDAY #30 tablet 01/05/18 Unknown Rx Ondansetron [Zofran Odt] 4 mg PO Q8H PRN #10 tab.rapdis 01/05/18 Unknown Rx ALBUTEROL Inhaler (OR & NICU) 1 puff IH Q4-6H #1 inha 02/14/18 Unknown Rx [ProAir HFA Inhaler] Azithromycin [Zithromax Z-JOHN] 250 mg PO DAILY #6 tablet 02/14/18 Unknown Rx Cyclobenzaprine HCl [Flexeril 5 MG 5 mg PO TID PRN #12 tab 02/14/18 Unknown Rx TAB] Ibuprofen [Motrin 800 MG tab] 800 mg PO Q8HR PRN #15 tablet 02/14/18 Unknown Rx Ondansetron [Zofran Odt] 4 mg PO Q6H PRN #12 tab.rapdis 08/19/18 Unknown Rx Promethazine [Phenergan TAB] 25 mg PO Q6HR PRN #20 tab 08/19/18 Unknown Rx traMADol [Ultram] 50 mg PO Q6HR PRN #20 tablet 08/19/18 Unknown Rx ED Physical Exam - General Limitations: No Limitations General appearance: alert, in no apparent distress - Head Head exam: Present: atraumatic, normocephalic - Eye Eye exam: Present: normal appearance, PERRL, EOMI - ENT ENT exam: Present: mucous membranes dry - Neck Neck exam: Present: normal inspection - Respiratory Respiratory exam: Present: normal lung sounds bilaterally. Absent: respiratory distress, wheezes, rales, rhonchi - Cardiovascular Cardiovascular Exam: Present: regular rate, normal rhythm. Absent: systolic murmur, diastolic murmur, rubs, gallop - GI/Abdominal GI/Abdominal exam: Present: soft, normal bowel sounds. Absent: distended, tenderness - Extremities Exam Extremities exam: Present: normal inspection - Back Exam Back exam: Present: normal inspection - Neurological Exam Neurological exam: Present: alert, oriented X3, CN II-XII intact. Absent: motor sensory deficit - Psychiatric Psychiatric exam: Present: normal affect, normal mood - Skin Skin exam: Present: warm, dry, intact, normal color. Absent: rash ED Course Vital Signs 08/19/18 11:28 Temperature 98 F Pulse Rate 93 H Respiratory 20 Rate Blood Pressure 163/107 O2 Sat by Pulse 100 Oximetry ED Medical Decision Making - Lab Data Result diagrams: 08/19/18 14:26 08/19/18 14:26 Lab Results 08/19/18 08/19/18 Range/Units 14:26 14:26 WBC 12.6 H (4.5-11.0) K/mm3 RBC 4.97 (3.65-5.03) M/mm3 Hgb 14.5 H (10.1-14.3) gm/dl Hct 44.1 H (30.3-42.9) % MCV 89 (79-97) fl MCH 29 (28-32) pg MCHC 33 (30-34) % RDW 15.9 H (13.2-15.2) % Plt Count 373 (140-440) K/mm3 Lymph % (Auto) 12.2 L (13.4-35.0) % [place] % (Auto) 6.7 (0.0-7.3) % Eos % (Auto) 0.1 (0.0-4.3) % Baso % (Auto) 0.5 (0.0-1.8) % Lymph # 1.5 (1.2-5.4) K/mm3 [place] # 0.8 (0.0-0.8) K/mm3 Eos # 0.0 (0.0-0.4) K/mm3 Baso # 0.1 (0.0-0.1) K/mm3 Seg Neutrophils % 80.5 H (40.0-70.0) % Seg Neutrophils # 10.1 H (1.8-7.7) K/mm3 Sodium 133 L (137-145) mmol/L Chloride 96.7 L (98-107) mmol/L BUN 18 H (7-17) mg/dL Creatinine 0.7 (0.7-1.2) mg/dL Estimated GFR > 60 ml/min BUN/Creatinine Ratio 26 % Glucose 110 H (65-100) mg/dL Calcium 10.2 (8.4-10.2) mg/dL Total Bilirubin 0.50 (0.1-1.2) mg/dL Total Protein 9.1 H (6.3-8.2) g/dL Albumin 4.7 (3.9-5) g/dL Albumin/Globulin Ratio 1.1 % Lipase 19 (13-60) units/L - Medical Decision Making Discussed results with patient Critical care attestation.: If time is entered above; I have spent that time in minutes in the direct care of this critically ill patient, excluding procedure time. ED Disposition Clinical Impression: Nausea & vomiting Disposition: DC-01 TO HOME OR SELFCARE Is pt being admited?: No Does the pt Need Aspirin: No Condition: Stable Instructions: Acute Nausea and Vomiting (ED) Additional Instructions: return if worse Prescriptions: Ondansetron [Zofran Odt] 4 mg PO Q6H PRN #12 tab.rapdis PRN Reason: Nausea Promethazine [Phenergan TAB] 25 mg PO Q6HR PRN #20 tab PRN Reason: Nausea traMADol [Ultram] 50 mg PO Q6HR PRN #20 tablet PRN Reason: Pain Referrals: CHUY JOSÉ MD [Primary Care Provider] - 3-5 Days [facility] [Provider Group] - 3-5 Days [facility] [Provider Group] - 3-5 Days [facility] [Outside] - 3-5 Days Time of Disposition: 15:30
[2018-08-19 14:36] LABS: Basophils # (Auto) 0.1 K/mm3 (0.0-0.1); Basophils % (Auto) 0.5 % (0.0-1.8); Eosinophils % (Auto) 0.1 % (0.0-4.3); Hematocrit 44.1 % (30.3-42.9); Hemoglobin 14.5 gm/dl (10.1-14.3); Lymphocytes # (Auto) 1.5 K/mm3 (1.2-5.4); Lymphocytes % (Auto) 12.2 % (13.4-35.0); Mean Corpuscular HGB Conc 33 % (30-34); Mean Corpuscular Volume 89 fl (79-97); Monocytes # (Auto) 0.8 K/mm3 (0.0-0.8); Monocytes % (Auto) 6.7 % (0.0-7.3); Platelet Count 373 K/mm3 (140-440); Red Blood Count 4.97 M/mm3 (3.65-5.03); Red Cell Distribution Width 15.9 % (13.2-15.2)
[2018-08-19 15:37] LABS: BUN/Creatinine Ratio TNR; Blood Urea Nitrogen TNR mg/dL (7-17); Calcium TNR mg/dL (8.4-10.2)
[2018-08-19 15:38] LABS: Alanine Aminotransferase TNR units/L (7-56); Albumin TNR g/dL (3.9-5); Hemolysis Index TNR
== END 2018-08-19 16:13 | disposition home or self-care (01) ==
LOC: ED 11:05
DX: R11.2 Nausea with vomiting, unspecified (principal); R19.7 Diarrhea, unspecified; I10 Essential (primary) hypertension; R42 Dizziness and giddiness; F17.200 Nicotine dependence, unspecified, uncomplicated
CPT/HCPCS: 36415; 80053; 83690; 85025; 93005; 93010; 96361; 96374; 99283; J2405; J7030

== ENCOUNTER 2019-04-17 13:42 | Emergency (ER) | payer SELFPAY ==
[2019-04-17 15:12] LABS: Basophils # (Auto) 0.1 K/mm3 (0.0-0.1); Basophils % (Auto) 1.4 % (0.0-1.8); Eosinophils # (Auto) 0.1 K/mm3 (0.0-0.4); Eosinophils % (Auto) 1.5 % (0.0-4.3); Hematocrit 40.2 % (30.3-42.9); Hemoglobin 13.4 gm/dl (10.1-14.3); Lymphocytes # (Auto) 1.7 K/mm3 (1.2-5.4); Lymphocytes % (Auto) 25.7 % (13.4-35.0); Mean Corpuscular HGB Conc 33 % (30-34); Mean Corpuscular Volume 88 fl (79-97); Monocytes # (Auto) 0.4 K/mm3 (0.0-0.8); Monocytes % (Auto) 5.8 % (0.0-7.3); Platelet Count 292 K/mm3 (140-440); Red Blood Count 4.55 M/mm3 (3.65-5.03); Red Cell Distribution Width 16.9 % (13.2-15.2)
[2019-04-17 15:28] LABS: BUN/Creatinine Ratio 20; Blood Urea Nitrogen 14 mg/dL (7-17); Calcium 9.9 mg/dL (8.4-10.2); Hemolysis Index 5
[2019-04-17 16:03] LABS: Amphetamine Screen,Urine PRESUMPTIVE NEGATIVE; Benzodiazepines Screen,Urine PRESUMPTIVE NEGATIVE; Bilirubin,Urine NEG (Negative); Blood,Urine MOD (Negative); Color,Urine Yellow (Yellow); Methadone Screen,Urine PRESUMPTIVE NEGATIVE; Mucus,Urine FEW /HPF; Opiate Screen,Urine PRESUMPTIVE NEGATIVE; Protein,Urine <15 mg/dL mg/dL (Negative); Urobilinogen,Urine < 2.0 mg/dL (<2.0); WBC,Urine < 1.0 /HPF (0.0-6.0)
--- NOTE | 2019-04-17 16:08 | Emergency Department Report ---
ED Psych HPI - General Chief Complaint: Psych Stated Complaint: SUICIDAL THOUGHTS Time Seen by Provider: 04/17/19 14:26 Source: EMS Mode of arrival: Ambulatory - History of Present Illness Initial Comments: 48-year-old female with a past medical history of hypertension presents to the hospital with suicidal thoughts 2 months. Patient states she has spell of several ways to kill herself. She has previous history of suicidal ideation but has never had any attempts. In the past she has required treatment and had a diagnosis of depression and psychosis. She is not currently on any psychiatric medication. She states she occasionally has auditory hallucinations that are m ild. She denies physical complaints. - Related Data Previous Rx's Medication Instructions Recorded Last Taken Type Ciprofloxacin HCl [Ciprofloxacin 500 mg PO Q12H #14 tab 09/12/17 Unknown Rx TAB] Ondansetron [Zofran TAB] 4 mg PO Q8HR PRN #20 tablet 09/12/17 Unknown Rx metroNIDAZOLE [Flagyl] 500 mg PO Q12HR #14 tab 09/12/17 Unknown Rx traMADol [Ultram 50 MG tab] 50 mg PO Q6HR PRN #15 tablet 09/12/17 Unknown Rx Metoprolol Tartrate 25 mg PO BID #30 tablet 09/14/17 Unknown Rx Amlodipine Besylate [Norvasc] 10 mg PO QDAY #30 tablet 01/05/18 Unknown Rx Ondansetron [Zofran Odt] 4 mg PO Q8H PRN #10 tab.rapdis 01/05/18 Unknown Rx ALBUTEROL Inhaler (OR & NICU) 1 puff IH Q4-6H #1 inha 02/14/18 Unknown Rx [ProAir HFA Inhaler] Azithromycin [Zithromax Z-JOHN] 250 mg PO DAILY #6 tablet 02/14/18 Unknown Rx Cyclobenzaprine HCl [Flexeril 5 MG 5 mg PO TID PRN #12 tab 02/14/18 Unknown Rx TAB] Ibuprofen [Motrin 800 MG tab] 800 mg PO Q8HR PRN #15 tablet 02/14/18 Unknown Rx Ondansetron [Zofran Odt] 4 mg PO Q6H PRN #12 tab.rapdis 08/19/18 Unknown Rx Promethazine [Phenergan TAB] 25 mg PO Q6HR PRN #20 tab 08/19/18 Unknown Rx traMADol [Ultram] 50 mg PO Q6HR PRN #20 tablet 08/19/18 Unknown Rx Allergies Allergy/AdvReac Type Severity Reaction Status Date / Time No Known Allergies Allergy Verified 09/14/17 11:33 ED Review of Systems ROS: Stated complaint: SUICIDAL THOUGHTS Other details as noted in HPI Comment: All other systems reviewed and negative ED Past Medical Hx - Past Medical History Hx Hypertension: Yes Hx Congestive Heart Failure: No Hx Diabetes: No Hx Psychiatric Treatment: Yes (depression and psychosis) Hx Asthma: No Hx COPD: No - Surgical History Past Surgical History?: Yes Additional Surgical History: X 5 - Social History Smoking Status: Current Every Day Smoker Substance Use Type: Marijuana - Medications Home Medications: Home Medications Medication Instructions Recorded Confirmed Last Taken Type Ciprofloxacin HCl [Ciprofloxacin 500 mg PO Q12H #14 tab 09/12/17 Unknown Rx TAB] Ondansetron [Zofran TAB] 4 mg PO Q8HR PRN #20 tablet 09/12/17 Unknown Rx metroNIDAZOLE [Flagyl] 500 mg PO Q12HR #14 tab 09/12/17 Unknown Rx traMADol [Ultram 50 MG tab] 50 mg PO Q6HR PRN #15 tablet 09/12/17 Unknown Rx Metoprolol Tartrate 25 mg PO BID #30 tablet 09/14/17 Unknown Rx Amlodipine Besylate [Norvasc] 10 mg PO QDAY #30 tablet 01/05/18 Unknown Rx Ondansetron [Zofran Odt] 4 mg PO Q8H PRN #10 tab.rapdis 01/05/18 Unknown Rx ALBUTEROL Inhaler (OR & NICU) 1 puff IH Q4-6H #1 inha 02/14/18 Unknown Rx [ProAir HFA Inhaler] Azithromycin [Zithromax Z-JOHN] 250 mg PO DAILY #6 tablet 02/14/18 Unknown Rx Cyclobenzaprine HCl [Flexeril 5 MG 5 mg PO TID PRN #12 tab 02/14/18 Unknown Rx TAB] Ibuprofen [Motrin 800 MG tab] 800 mg PO Q8HR PRN #15 tablet 02/14/18 Unknown Rx Ondansetron [Zofran Odt] 4 mg PO Q6H PRN #12 tab.rapdis 08/19/18 Unknown Rx Promethazine [Phenergan TAB] 25 mg PO Q6HR PRN #20 tab 08/19/18 Unknown Rx traMADol [Ultram] 50 mg PO Q6HR PRN #20 tablet 08/19/18 Unknown Rx ED Physical Exam - General Limitations: No Limitations - Other Other exam information: Gen.: No acute distress Head: Atraumatic Eyes: Normal appearance ENT: Moist mucous membranes Neck: Normal appearance, no posterior midline tenderness, no meningismus Chest: Clear to auscultation bilaterally Cardiovascular: Regular rate and rhythm Abdomen: Normal appearance, soft, nontender, no rebound or guarding, normal bowel sounds Back: Normal appearance, nontender Extremity: Full range of motion, normal appearance Neuro: Alert oriented 3, clear speech, no focal motor or sensory deficit Psychiatric: Appropriate Skin: No rash ED Course Vital Signs 04/17/19 14:00 Temperature 98.3 F Pulse Rate 75 Respiratory 18 Rate Blood Pressure 147/93 O2 Sat by Pulse 97 Oximetry ED Medical Decision Making - Lab Data Result diagrams: 04/17/19 14:55 04/17/19 14:55 - Differential Diagnosis psychosis, suicidal, homicidal, depressed Critical care attestation.: If time is entered above; I have spent that time in minutes in the direct care of this critically ill patient, excluding procedure time. ED Disposition Clinical Impression: Suicidal ideations, Cocaine abuse, Medical clearance for psychiatric admission Disposition: DC/TX-65 PSY HOSP/PSY UNIT Is pt being admited?: No Condition: Stable Time of Disposition: 17:00 (awaiting acceptance)
[2019-04-17 16:50] LABS: Cannabinoid Screen,Urine PRESUMPTIVE POSITIVE; Cocaine Screen,Urine PRESUMPTIVE POSITIVE
--- NOTE | 2019-04-18 12:56 | Consultation ---
History of Present Illness - Reason for Consult Consult date: 04/18/19 Reason for consult: Mental Health Evaluation Requesting physician: HAN WONG - Chief Complaint Chief complaint: "I want to stop with the drugs" - History of Present Psychiatric Illness 48 y.o AA female who presented to the ER for Si's. Today the patient was calm, but emotional intermittently during the assessment. She stated that she has a problem with "drugs and still mourning the of her daughter. She stated that she have used "drugs" for several years. She stated that she was "clean," but relapsed once her daughter "some years ago." She stated that she is homeless and currently taking care of her granddaughter at this time. She stated that life have been hard and wanted to kill herself yesterday by walking into traffic. She would not confirm or deny SI's when asked. She denies any previous suicide attempts. She rate her depression 8/10, with 10 being the worse. She denies HI's and AVH's. She acknowledge both a poor appetite and erratic sleep. She denies alcohol consumption (etoh). Medications and Allergies Allergies Allergy/AdvReac Type Severity Reaction Status Date / Time No Known Allergies Allergy Verified 09/14/17 11:33 Home Medications Medication Instructions Recorded Confirmed Last Taken Type diphenhydrAMINE [Benadryl CAP] 50 mg PO HS 04/17/19 04/17/19 Unknown History Active Meds: Active Medications Diphenhydramine HCl (Benadryl) 50 mg PO HS [facility] Past psychiatric history - Past Medical History Past Medical History: No medical history Past Surgical History: No surgical history - past Psychiatric treatment and history psychiatric treatment history: Hx of Substance Abuse. Denies a fam psy hx. - Social History Social history: other (Homeless) Mental Status Exam - Vital signs Last Vital Signs Temp 97.9 F 04/18/19 08:28 Pulse 80 04/18/19 08:28 Resp 16 04/18/19 08:28 BP 129/93 04/18/19 08:28 Pulse Ox 100 04/18/19 08:28 - Exam Narrative exam: MSE: Appearance: in hospital attire Behavior: regular eye contact Speech: regular rate and tone Mood: "hopeless" emotional intermittently Affect: congruent to mood Thought Process: circumstantial Thought Content: denies HI's and AVH's Motor Activity: sitting up in bed Cognition: A/O x3 Insight: variable Judgment: poor Results Result Diagrams: 04/17/19 14:55 04/17/19 14:55 Abnormal lab results 04/17/19 04/17/19 04/17/19 Range/Units 14:55 14:55 14:55 RDW 16.9 H (13.2-15.2) % Sodium 134 L (137-145) mmol/L Carbon Dioxide 19 L (22-30) mmol/L Salicylates < 0.3 L (2.8-20.0) mg/dL Acetaminophen (10.0-30.0) ug/mL 04/17/19 Range/Units 14:55 RDW (13.2-15.2) % Sodium (137-145) mmol/L Carbon Dioxide (22-30) mmol/L Salicylates (2.8-20.0) mg/dL Acetaminophen < 5.0 L (10.0-30.0) ug/mL All other labs normal. Assessment and Plan Assessment and plan: Impression: MDD. Substance Use DO (cocaine). Cannabis Use DO. uncomplicated Grieving. Today the patient was emotional during the assessment. DDx: Substance Induced Mood DO Recommendation/Plan: Continue 1013 and start Remeron 15 mg PO HS for depression. Discussed possible suicdality/medication induced swathi with the patient, she verbalized understanding. Dispo: The patient was accepted at [facility] for inpatient psy services pending transport time. Staffed with Dr Bhaskar Pickard.
[2019-04-18] MEDS ORDERED: MIRTAZAPINE 15 MG TAB PO SCH (22:00)
[2019-04-18] MEDS ORDERED: diphenhydrAMINE 25 MG CAP PO SCH (22:00)
[2019-04-19 09:16] VITALS: BP 127/89
--- NOTE | 2019-04-19 09:37 | Progress Note ---
Subjective - Reason for Consult Consult date: 04/19/19 Reason for consult: Psychiatry Follow-up - Chief Complaint Chief complaint: "It's still hard for me" 48 y.o AA female who presented to the ER for Si's. Today the patient was calm during the assessment. She stated that she still feel bad about her current situation. She would not confirm or deny SI's when asked. She stated that she's "a little sleepy." She denies HI's and AVH's. Mental Status Exam - Vital signs Last Vital Signs Temp 98 F 04/19/19 08:33 Pulse 71 04/19/19 08:33 Resp 16 04/19/19 08:33 BP 127/89 04/19/19 08:33 Pulse Ox 100 04/19/19 08:33 - Exam Narrative exam: MSE: Appearance: calm Behavior: regular eye contact Speech: regular rate and tone Mood: "tired' Affect: congruent to mood Thought Process: circumstantial Thought Content: denies HI's and AVH's Motor Activity: sitting up in bed Cognition: A/O x3 Insight: variable Judgment: variable Assessment and Plan Impression: MDD. Substance Use DO (cocaine). Cannabis Use DO. uncomplicated Grieving. Today the patient was calm during the assessment. DDx: Substance Induced Mood DO Recommendation/Plan: Continue 1013 and Remeron 15 mg PO HS for depression. Discussed possible suicdality/medication induced swathi with the patient, she verbalized understanding. Dispo: The patient was accepted at [facility] for inpatient psy services pending transport time. Will staff with Dr Bhaskar Pickard.
== END 2019-04-19 11:31 ==
LOC: ED 13:42
DX: F32.9 Major depressive disorder, single episode, unspecified (principal); F29 Unspecified psychosis not due to a substance or known physiological condition; F17.200 Nicotine dependence, unspecified, uncomplicated; F12.10 Cannabis abuse, uncomplicated; Z79.899 Other long term (current) drug therapy
CPT/HCPCS: 36415; 80048; 80307; 80320; 81001; 85025; G0480

== ENCOUNTER 2019-06-16 02:05 | Emergency (ER) | payer SELFPAY ==
[2019-06-16 03:06] LABS: Basophils # (Auto) 0.2 K/mm3 (0.0-0.1); Basophils % (Auto) 1.4 % (0.0-1.8); Eosinophils # (Auto) 0.1 K/mm3 (0.0-0.4); Eosinophils % (Auto) 0.5 % (0.0-4.3); Hematocrit 40.7 % (30.3-42.9); Hemoglobin 13.4 gm/dl (10.1-14.3); Lymphocytes # (Auto) 1.9 K/mm3 (1.2-5.4); Lymphocytes % (Auto) 16.5 % (13.4-35.0); Mean Corpuscular HGB Conc 33 % (30-34); Mean Corpuscular Volume 88 fl (79-97); Monocytes # (Auto) 0.6 K/mm3 (0.0-0.8); Monocytes % (Auto) 5.2 % (0.0-7.3); Platelet Count 330 K/mm3 (140-440); Red Blood Count 4.61 M/mm3 (3.65-5.03); Red Cell Distribution Width 16.4 % (13.2-15.2)
[2019-06-16 03:29] LABS: Alanine Aminotransferase 8 units/L (7-56); Albumin 4.5 g/dL (3.9-5); BUN/Creatinine Ratio 20; Blood Urea Nitrogen 16 mg/dL (7-17); Calcium 10.7 mg/dL (8.4-10.2); Hemolysis Index 11
[2019-06-16] MEDS ORDERED: IPRATROPIUM/ALBUTEROL SULFATE 3 ML AMPUL.NEB IH ONE (03:56)
[2019-06-16] MEDS ORDERED: predniSONE 20 MG TAB PO ONE (03:56)
[2019-06-16] MEDS ORDERED: ACETAMINOPHEN 500 MG TAB PO ONE (03:56)
[2019-06-16 04:29] LABS: Bilirubin,Urine NEG (Negative); Blood,Urine LG (Negative); Color,Urine Yellow (Yellow); Granular Casts,Urine 2 /LPF; Mucus,Urine 2+ /HPF
--- NOTE | 2019-06-16 04:30 | XRay Report ---
CHEST 2 VIEWS INDICATION / CLINICAL INFORMATION: COUGH. COMPARISON: None available. FINDINGS: SUPPORT DEVICES: None. HEART / MEDIASTINUM: No significant abnormality. LUNGS / PLEURA: No significant pulmonary or pleural abnormality. No pneumothorax. ADDITIONAL FINDINGS: No significant additional findings. IMPRESSION: 1. No acute findings. Signer Name: Micky Aguayo MD Signed: 06/16/2019 4:26 AM Workstation Name: [id number]
--- NOTE | 2019-06-16 05:16 | Emergency Department Report ---
- General Chief Complaint: Back Pain/Injury Stated Complaint: KIDNEY PAIN, LIGHT HEADED Source: patient Mode of arrival: Ambulatory Limitations: No Limitations - History of Present Illness Initial Comments: Patient is a 48-year-old female who is a heavy smoker and with a past medical history of hypertension presents to the ED with continued acute onset persistent nasal and sinus congestion, frontal sinus pressure, sore throat, cough with white to yellowish phlegm and diffuse severe body aches and pains worse in the lower back for the last 1 week. Patient denies dizziness, chest pain, shortness of breath, abdominal pain, dysuria, urinary frequency and urgency, headache, vaginal discharge, vaginal bleeding, nausea, vomiting or diarrhea. MD Complaint: fever, cough, sore throat, rhinorrhea, nasal congestion, sinus pain, other (diffuse body aches and pain) -: Sudden, week(s) (1) Severity: moderate Severity scale (0 -10): 5 Quality: sharp, aching Consistency: constant Improves With: nothing Worsens With: nothing Context: sick contacts Associated Symptoms: denies other symptoms, myalgias, headache, rhinorrhea, nasal congestion, cough. denies: fever, chills, diaphoresis, stiff neck, chest pain, shortness of breath, abdominal pain, nausea, vomiting, diarrhea, confusion, weight loss, hoarseness Treatments Prior to Arrival: none - Related Data Home Medications Medication Instructions Recorded Confirmed Last Taken diphenhydrAMINE [Benadryl CAP] 50 mg PO HS 04/17/19 04/17/19 Unknown Previous Rx's Medication Instructions Recorded Last Taken Type ALBUTEROL Inhaler (OR & NICU) 1 puff IH Q4H PRN #1 inh 06/16/19 Unknown Rx [ProAir HFA Inhaler] Amoxicillin [Trimox CAP] 500 mg PO Q8H #30 capsule 06/16/19 Unknown Rx Benzonatate [Tessalon Perles] 100 mg PO Q8HR #30 capsule 06/16/19 Unknown Rx Ibuprofen [Motrin] 600 mg PO Q8H PRN #20 tablet 06/16/19 Unknown Rx methylPREDNISolone [Medrol 4MG 4 mg PO DAILY #21 tab.ds.pk 06/16/19 Unknown Rx DOSEPAK (21 tabs)] Allergies Allergy/AdvReac Type Severity Reaction Status Date / Time No Known Allergies Allergy Verified 09/14/17 11:33 ED Review of Systems ROS: Stated complaint: KIDNEY PAIN, LIGHT HEADED Other details as noted in HPI Constitutional: chills, fever Eyes: denies: eye pain, eye discharge, vision change ENT: throat pain, congestion. denies: ear pain Respiratory: cough, wheezing. denies: shortness of breath Cardiovascular: denies: chest pain, palpitations Endocrine: no symptoms reported Gastrointestinal: denies: abdominal pain, nausea, diarrhea Genitourinary: denies: urgency, dysuria, discharge Musculoskeletal: denies: back pain, joint swelling, arthralgia Skin: denies: rash, lesions Neurological: denies: headache, weakness, paresthesias Psychiatric: denies: anxiety, depression Hematological/Lymphatic: denies: easy bleeding, easy bruising ED Past Medical Hx - Past Medical History Previous Medical History?: Yes Hx Hypertension: Yes Hx Congestive Heart Failure: No Hx Diabetes: No Hx Psychiatric Treatment: Yes (depression and psychosis) Hx Asthma: No Hx COPD: No Additional medical history: Decreased Kidney Function - Surgical History Past Surgical History?: Yes Additional Surgical History: X 5 - Social History Smoking Status: Current Every Day Smoker - Medications Home Medications: Home Medications Medication Instructions Recorded Confirmed Last Taken Type diphenhydrAMINE [Benadryl CAP] 50 mg PO HS 04/17/19 04/17/19 Unknown History ALBUTEROL Inhaler (OR & NICU) 1 puff IH Q4H PRN #1 inh 06/16/19 Unknown Rx [ProAir HFA Inhaler] Amoxicillin [Trimox CAP] 500 mg PO Q8H #30 capsule 06/16/19 Unknown Rx Benzonatate [Tessalon Perles] 100 mg PO Q8HR #30 capsule 06/16/19 Unknown Rx Ibuprofen [Motrin] 600 mg PO Q8H PRN #20 tablet 06/16/19 Unknown Rx methylPREDNISolone [Medrol 4MG 4 mg PO DAILY #21 tab.ds.pk 06/16/19 Unknown Rx DOSEPAK (21 tabs)] ED Physical Exam - General Limitations: No Limitations General appearance: alert, in no apparent distress - Head Head exam: Present: atraumatic, normocephalic, normal inspection - Eye Eye exam: Present: normal appearance, PERRL, EOMI Pupils: Present: normal accommodation - ENT ENT exam: Present: normal exam, mucous membranes moist, TM's normal bilaterally, normal external ear exam, other (grossly congested nasal passages, palpable frontal sinus tenderness) - Neck Neck exam: Present: normal inspection, full ROM, lymphadenopathy - Respiratory Respiratory exam: Present: normal lung sounds bilaterally, wheezes (mildly diffuse wheezes throughout). Absent: respiratory distress, chest wall tenderness, decreased breath sounds - Cardiovascular Cardiovascular Exam: Present: regular rate, normal rhythm, normal heart sounds. Absent: systolic murmur, diastolic murmur, rubs, gallop - GI/Abdominal GI/Abdominal exam: Present: soft, normal bowel sounds. Absent: tenderness, guarding, rebound, hyperactive bowel sounds, hypoactive bowel sounds - Extremities Exam Extremities exam: Present: normal inspection, full ROM, normal capillary refill - Back Exam Back exam: Present: normal inspection, full ROM, tenderness (lumbosacral musculoskeletal tenderness), muscle spasm, paraspinal tenderness - Neurological Exam Neurological exam: Present: alert, oriented X3, CN II-XII intact, normal gait, reflexes normal - Psychiatric Psychiatric exam: Present: normal affect, normal mood - Skin Skin exam: Present: warm, dry, intact, normal color. Absent: rash ED Course Vital Signs 06/16/19 06/16/19 02:21 04:12 Temperature 98.5 F Pulse Rate 88 Respiratory 18 16 Rate Blood Pressure 141/99 O2 Sat by Pulse 99 Oximetry - Reevaluation(s) Reevaluation #1: 06/16/19 05:21 This is a 48-year-old female who presented to the ED with complaint of nasal and sinus congestion, frontal sinus pressure, persistent cough with phlegm, subjective fever and chills with diffuse body aches and pains. In the ED, patient is alert and oriented 3 and is not in distress. Lab test results were reviewed and are nonactionable. Patient was treated in the ED with DuoNeb, also given oral steroids in the ED. Chest x-ray shows no acute cardiopulmonary abnormalities. On reevaluation, patient felt better and was discharged home on medications and advised to follow-up with her primary care physician in 5-7 days for reevaluation or return to the ED immediately if symptoms get worse. ED Medical Decision Making - Lab Data Result diagrams: 06/16/19 02:48 06/16/19 02:48 - Radiology Data Radiology results: report reviewed, image reviewed Chest x-ray shows no acute cardiopulmonary abnormalities or pneumonitis - Medical Decision Making This is a 48-year-old female who presented to the ED with complaint of nasal and sinus congestion, frontal sinus pressure, persistent cough with phlegm, subjective fever and chills with diffuse body aches and pains. In the ED, patient is alert and oriented 3 and is not in distress. Lab test results were reviewed and are nonactionable. Patient was treated in the ED with DuoNeb, also given oral steroids in the ED. Chest x-ray shows no acute cardiopulmonary abnormalities. On reevaluation, patient felt better and was discharged home on medications and advised to follow-up with her primary care physician in 5-7 days for reevaluation or return to the ED immediately if symptoms get worse. - Differential Diagnosis SINUSITIS; PNEUMONIA; BRONCHITIS; UTI; URI; PHARYNGITIS Critical care attestation.: If time is entered above; I have spent that time in minutes in the direct care of this critically ill patient, excluding procedure time. ED Disposition Clinical Impression: Flu-like symptoms, Acute upper respiratory infection Acute bronchitis Qualifiers: Bronchitis organism: unspecified organism Qualified Code(s): J20.9 - Acute bronchitis, unspecified Disposition: DC-01 TO HOME OR SELFCARE Is pt being admited?: No Does the pt Need Aspirin: No Condition: Stable Instructions: Acute Bronchitis (ED), Upper Respiratory Infection (ED), Acute Bacterial Rhinosinusitis (ED) Prescriptions: methylPREDNISolone [Medrol 4MG DOSEPAK (21 tabs)] 4 mg PO DAILY #21 tab.ds.pk Ibuprofen [Motrin] 600 mg PO Q8H PRN #20 tablet PRN Reason: Pain ALBUTEROL Inhaler (OR & NICU) [ProAir HFA Inhaler] 1 puff IH Q4H PRN #1 inh PRN Reason: Dyspnea Benzonatate [Tessalon Perles] 100 mg PO Q8HR #30 capsule Amoxicillin [Trimox CAP] 500 mg PO Q8H #30 capsule Referrals: PRIMARY CARE,MD [Primary Care Provider] - 3-5 Days Forms: Work/School Release Form(ED) Time of Disposition: 05:16 Print Language: YEMENI
[2019-06-16 06:43] VITALS: BP 144/95
== END 2019-06-16 05:47 | disposition home or self-care (01) ==
LOC: ED 02:05
DX: J06.9 Acute upper respiratory infection, unspecified (principal); J20.9 Acute bronchitis, unspecified; I10 Essential (primary) hypertension; F32.9 Major depressive disorder, single episode, unspecified; F17.200 Nicotine dependence, unspecified, uncomplicated; Z79.899 Other long term (current) drug therapy
CPT/HCPCS: 36415; 71046; 80053; 81001; 83690; 85025; 94640; 99284; J7512

== ENCOUNTER 2019-08-11 09:44 | Emergency (ER) | payer SELFPAY ==
--- NOTE | 2019-08-11 10:19 | Emergency Department Report ---
<SUNDAYALPA FritzDelfina - Last Filed: 08/11/19 16:18> ED Psych HPI - General Chief Complaint: Psych Stated Complaint: SI Time Seen by Provider: 08/11/19 10:14 Source: patient, EMS Mode of arrival: Ambulatory - History of Present Illness Initial Comments: Patient is 48 years old female with history of bipolar disorder. Patient presented to the ER stating that she is very depressed and she is suicidal. Patient was a just released from [facility] after 48 days in custody. Patient stated that when she went to see her her refused to talk to her and asked To leave. Patient stated that [place] [address] [place]. Patient denied any homicidal ideation. No visual or auditory hallucination. Patient is tearful due to my interview. MD Complaint: suicidal ideation, feels depressed -: Last night Associated Psychiatric Symptoms: depression, suicidal ideation History of same: Yes Quality: constant Context: recent drug abuse Associated Symptoms: denies other symptoms Treatments Prior to Arrival: none If Self Harm: admits thoughts of, has plan, has acted on plan, self-inflicted trauma - Related Data Previous Rx's Medication Instructions Recorded Last Taken Type Doxepin [SINEquan] 10 mg PO QHS #30 capsule 08/13/19 Unknown Rx Escitalopram Oxalate [Lexapro] 5 mg PO QDAY #30 tablet 08/13/19 Unknown Rx busPIRone [Buspar] 5 mg PO BID #60 tab 08/13/19 Unknown Rx Allergies Allergy/AdvReac Type Severity Reaction Status Date / Time No Known Allergies Allergy Unverified 08/11/19 09:57 ED Review of Systems Comment: All other systems reviewed and negative Constitutional: denies: chills, fever Respiratory: denies: cough, shortness of breath, SOB with exertion Cardiovascular: denies: chest pain Gastrointestinal: denies: abdominal pain, nausea, vomiting Musculoskeletal: denies: back pain Neurological: denies: headache, weakness, numbness, paresthesias, confusion, abnormal gait Psychiatric: depression, suicidal thoughts. denies: auditory hallucinations, visual hallucinations, homicidal thoughts ED Past Medical Hx - Past Medical History Previous Medical History?: Yes Hx Hypertension: Yes Hx Psychiatric Treatment: Yes (depression) - Surgical History Past Surgical History?: No - Social History Smoking Status: Current Every Day Smoker Substance Use Type: Cocaine, Marijuana - Medications Home Medications: Home Medications Medication Instructions Recorded Confirmed Last Taken Type Doxepin [SINEquan] 10 mg PO QHS #30 capsule 08/13/19 Unknown Rx Escitalopram Oxalate [Lexapro] 5 mg PO QDAY #30 tablet 08/13/19 Unknown Rx busPIRone [Buspar] 5 mg PO BID #60 tab 08/13/19 Unknown Rx ED Physical Exam - General Limitations: No Limitations General appearance: alert, in no apparent distress - Head Head exam: Present: atraumatic, normocephalic, normal inspection - Eye Eye exam: Present: normal appearance - ENT ENT exam: Present: normal exam, normal orophraynx, mucous membranes moist - Neck Neck exam: Present: normal inspection, full ROM. Absent: tenderness, meningismus, lymphadenopathy, thyromegaly - Respiratory Respiratory exam: Present: normal lung sounds bilaterally - Cardiovascular Cardiovascular Exam: Present: regular rate, normal rhythm, normal heart sounds - GI/Abdominal GI/Abdominal exam: Present: soft, normal bowel sounds. Absent: distended, tenderness, guarding, rebound, rigid, organomegaly, mass, bruit, pulsatile mass, hernia - Extremities Exam Extremities exam: Present: normal inspection, full ROM, normal capillary refill. Absent: tenderness, calf tenderness - Back Exam Back exam: Absent: CVA tenderness (R), CVA tenderness (L), muscle spasm, paraspinal tenderness, vertebral tenderness - Neurological Exam Neurological exam: Present: alert, oriented X3, CN II-XII intact - Psychiatric Psychiatric exam: Present: depressed, suicidal ideation. Absent: agitated, anxious, flat affect, manic, homicidal ideation - Skin Skin exam: Present: warm, intact, normal color ED Medical Decision Making - Lab Data Result diagrams: 08/11/19 10:17 08/11/19 10:17 ED Disposition Clinical Impression: Suicidal ideation, Depression, UTI (urinary tract infection), Substance abuse, Psychosis Disposition: DC-01 TO HOME OR SELFCARE Is pt being admited?: No Condition: Stable Instructions: Depression (ED), Suicide Prevention for Adults (ED), Brief Psychotic Disorder (ED) Additional Instructions: Please return if there are homicidal suicidal ideations. Also return for visual or auditory hallucinations He is follow-up with outpatient services provided to you by psychiatry Prescriptions: Doxepin [SINEquan] 10 mg PO QHS #30 capsule busPIRone [Buspar] 5 mg PO BID #60 tab Escitalopram Oxalate [Lexapro] 5 mg PO QDAY #30 tablet Referrals: [facility] [Outside] - 3-5 Days <VICKIE AGUILAR - Last Filed: 08/13/19 16:11> ED Review of Systems ROS: Stated complaint: SI Other details as noted in HPI ED Course Vital Signs 08/11/19 08/11/19 08/11/19 09:50 20:00 20:11 Temperature 98.3 F 98.3 F Pulse Rate 97 H 94 H Respiratory 16 18 18 Rate Blood Pressure 119/84 128/87 [Right] O2 Sat by Pulse 99 100 98 Oximetry 08/12/19 08/12/19 08/12/19 01:39 07:58 14:42 Temperature 98.3 F 98.5 F 98.8 F Pulse Rate 74 93 H 64 Respiratory 18 20 16 Rate Blood Pressure 109/71 115/82 105/79 [Right] O2 Sat by Pulse 99 100 99 Oximetry 08/12/19 08/13/19 08/13/19 20:27 01:15 07:49 Temperature 98.5 F 98.5 F 98.6 F Pulse Rate 83 77 87 Respiratory 18 20 20 Rate Blood Pressure 129/89 151/89 116/84 [Right] O2 Sat by Pulse 99 97 98 Oximetry 08/13/19 14:38 Temperature 98.6 F Pulse Rate 98 H Respiratory 18 Rate Blood Pressure 126/89 [Right] O2 Sat by Pulse 100 Oximetry ED Medical Decision Making - Lab Data Result diagrams: 08/11/19 10:17 08/11/19 10:17 - Medical Decision Making Addendum added by Caterina Robin. Patient seen and evaluated by psychiatry 1013 rescinded She given prescriptions and follow-up information via psychiatry Critical care attestation.: If time is entered above; I have spent that time in minutes in the direct care of this critically ill patient, excluding procedure time. ED Disposition Is pt being admited?: No Does the pt Need Aspirin: No Time of Disposition: 16:10
[2019-08-11 10:41] LABS: Basophils # (Auto) 0.1 K/mm3 (0.0-0.1); Basophils % (Auto) 1.1 % (0.0-1.8); Eosinophils # (Auto) 0.1 K/mm3 (0.0-0.4); Eosinophils % (Auto) 1.6 % (0.0-4.3); Hematocrit 38.6 % (30.3-42.9); Hemoglobin 12.8 gm/dl (10.1-14.3); Lymphocytes # (Auto) 1.9 K/mm3 (1.2-5.4); Lymphocytes % (Auto) 23.4 % (13.4-35.0); Mean Corpuscular HGB Conc 33 % (30-34); Mean Corpuscular Volume 88 fl (79-97); Monocytes # (Auto) 0.6 K/mm3 (0.0-0.8); Monocytes % (Auto) 7.2 % (0.0-7.3); Platelet Count 259 K/mm3 (140-440); Red Blood Count 4.41 M/mm3 (3.65-5.03)
[2019-08-11 10:42] LABS: Bilirubin,Urine NEG (Negative); Blood,Urine LG (Negative); Color,Urine Red (Yellow); Mucus,Urine 1+ /HPF; RBC,Urine > 182.0 /HPF (0.0-6.0)
[2019-08-11 11:01] LABS: Amphetamine Screen,Urine PRESUMPTIVE NEGATIVE; Benzodiazepines Screen,Urine PRESUMPTIVE NEGATIVE; Methadone Screen,Urine PRESUMPTIVE NEGATIVE; Opiate Screen,Urine PRESUMPTIVE NEGATIVE
[2019-08-11 11:11] LABS: BUN/Creatinine Ratio 19; Blood Urea Nitrogen 13 mg/dL (7-17); Calcium 10.3 mg/dL (8.4-10.2); Hemolysis Index 4
[2019-08-11 11:18] LABS: Cannabinoid Screen,Urine PRESUMPTIVE POSITIVE; Cocaine Screen,Urine PRESUMPTIVE POSITIVE
[2019-08-11] MEDS ORDERED: IBUPROFEN 600 MG TAB PO ONE ×2 (13:00→20:00)
[2019-08-11] MEDS: SULFAMETHOXAZOLE/TRIMETHOPRIM 800/160MG DS TAB PO SCH ×2 (13:29→22:11)
[2019-08-12] MEDS: SULFAMETHOXAZOLE/TRIMETHOPRIM 800/160MG DS TAB PO SCH ×2 (10:59→22:20)
--- NOTE | 2019-08-12 12:06 | Consultation ---
History of Present Illness - Reason for Consult Consult date: 08/12/19 Reason for consult: Suicidal ideation - Chief Complaint Chief complaint: suicidal ideation, drug use, depression, homeless - History of Present Psychiatric Illness Ofe Robb is a 48y/o female patient who states she came to the ER for "suicidal ideation, drug use and depression." The patient is sitting on side of cot. She's rocking back and fourth. She appears anxious. She's dressed appropriately. She makes fair eye contact. She is tearful. She states, "I feel very suicidal." She says she "just got out of [facility]." The patient states, "my left me, I'm homeless. I have a lot going on and everything has hit me at once." She says she hasn't been on meds in about "two years." She doesn't remember what medications she was on. The patient says she has a history of "chronic depression." She says she's had several thoughts of suicide in the past but has never attempted to end her life. Mrs. Robb denies hallucinations of any kind. She says she had a "relapse on cocaine." The patient states, "I was clean all this time except two days ago." She says her suicidal thoughts are getting better, "I've been praying and talking to God." She says "but if I go home I'm not sure what I'll do. I don't know what to do. I can't say I want hurt myself." The patient begins sobbing. PAST PSYCHIATRIC HISTORY: Diagnoses: "chronic depression" Suicide attempts or Self-harm behavior: thoughts, no attempts Prior psychiatric hospitalizations: "yes, about 5 times" Substance Abuse history: Cocaine, THC Previous psychiatric medications tried: can't remember Outpatient treatment: no PAST MEDICAL HISTORY: none reported Family Psychiatric History None reported or documented SOCIAL HISTORY Marital Status: Living Arrangements: Homeless Employment Status: Unemployed Access to guns/weapons: Denies Education: some 10th History of Abuse: Denies Legal History: [facility] REVIEW OF SYSTEMS Constitutional: Negative for weight loss ENT: Negative for stridor Respiratory: Negative for cough or hemoptysis All other systems reviewed and are negative MSE Appearance: Dressed appropriately. Behavior: appears anxious, rocking, fair eye contact Mood: depressed, tearful Affect: Congruent Thought Process: Goal directed Speech: Normal tone and pace Thought Content Suicidal: Yes Homicidal: Denies Hallucinations: Denies Delusions: None elicited Consciousness: Alert Cognition/Memory: Fair Insight/Judgment: Limited Assessment: Major Depressive Disorder, Severe, w/o Psychotic Features Plan Continue 1013 Medications Buspar 5mg po BID Melatonin 5mg po qhs prn insomnia Lexapro 5mg po daily Vistaril 50mg IV q6h prn anxiey Doxepin 10mg po qhs Sitter: defer to primary Medical: Per primary Disposition: The patient meets the requirements for acute inpatient psychiatric treatment. Please transfer to an appropriate psychiatric facility once medically cleared. Will follow until the patient is transferred Please call with any questions or concerns. Thank you for this consult. Medications and Allergies Allergies Allergy/AdvReac Type Severity Reaction Status Date / Time No Known Allergies Allergy Unverified 08/11/19 09:57 Home Medications Medication Instructions Recorded Confirmed Last Taken Type No Known Home Medications [No 08/11/19 08/11/19 Unknown History Reported Home Medications] Active Meds: Active Medications Trimethoprim/Sulfamethoxazole (Bactrim Ds) 1 each PO Q12HR BRENDA Last Admin: 08/12/19 10:59 Dose: 1 each Documented by: Mental Status Exam - Vital signs Last Vital Signs Temp 98.5 F 08/12/19 07:58 Pulse 93 H 08/12/19 07:58 Resp 20 08/12/19 07:58 BP 115/82 08/12/19 07:58 Pulse Ox 100 08/12/19 07:58 Results Result Diagrams: 08/11/19 10:17 08/11/19 10:17 All other labs normal.
[2019-08-12] MEDS ORDERED: MELATONIN 5 MG TAB PO PRN (12:17)
[2019-08-12] MEDS ORDERED: hydrOXYzine HCL 100 MG/2 ML INJ IM PRN (12:17)
[2019-08-12] MEDS: busPIRone 5 MG TAB PO SCH ×2 (14:00→22:20)
[2019-08-12] MEDS: ESCITALOPRAM 10 MG TAB PO SCH (14:26)
[2019-08-12] MEDS ORDERED: DOXEPIN 10 MG CAP PO SCH (22:00)
[2019-08-12] MEDS ORDERED: IBUPROFEN 600 MG TAB PO ONE ×2 (22:14→22:21)
[2019-08-13] MEDS: SULFAMETHOXAZOLE/TRIMETHOPRIM 800/160MG DS TAB PO SCH (10:58)
[2019-08-13] MEDS: ESCITALOPRAM 10 MG TAB PO SCH (10:58)
[2019-08-13] MEDS: busPIRone 5 MG TAB PO SCH (10:58)
--- NOTE | 2019-08-13 11:55 | Progress Note ---
Subjective - Reason for Consult Consult date: 08/13/19 Reason for consult: suicidal ideation, drug use, homelessness - Chief Complaint Chief complaint: During my interview with the patient, she was lying down. She is a/o x 3. She is pleasant, calm and cooperative. She is dressed appropriately. She makes good eye contact. She says she's doing "much better." She says "I've been praying. I know what I have to do. I gotta stay clean." The patient says "I spoke with my daughter and she says I can live with her." The patient denies SI/HI, saying "not at all. At the time I didn't have anywhere to go and I felt hopeless. I have so much to live for." She denies hallucinations of any kind. REVIEW OF SYSTEMS Constitutional: Negative for weight loss ENT: Negative for stridor Respiratory: Negative for cough or hemoptysis All other systems reviewed and are negative MSE Appearance: Dressed appropriately. Behavior: appears anxious, rocking, fair eye contact Mood: depressed, tearful Affect: Congruent Thought Process: Goal directed Speech: Normal tone and pace Thought Content Suicidal: Yes Homicidal: Denies Hallucinations: Denies Delusions: None elicited Consciousness: Alert Cognition/Memory: Fair Insight/Judgment: Limited Assessment: Major Depressive Disorder, Severe, w/o Psychotic Features Plan D/C 1013 Medications Buspar 5mg po BID Lexapro 5mg po daily Doxepoin 10mg po qhs Sitter: defer to primary Medical: Per primary Disposition: The patient does not meet the requirements for acute inpatient psychiatric treatment. Please discharge home once medically cleared. Do not engage in any illicit drug use. The patient is to follow up with outpatient psych or primary for 7 to 10 days. Please call with any questions or concerns. Thank you for this consult. Mental Status Exam - Vital signs Last Vital Signs Temp 98.6 F 08/13/19 07:49 Pulse 87 08/13/19 07:49 Resp 20 08/13/19 07:49 BP 116/84 08/13/19 07:49 Pulse Ox 98 08/13/19 07:49
[2019-08-13 14:39] VITALS: BP 126/89
== END 2019-08-13 22:45 | disposition home or self-care (01) ==
LOC: EDUNIT# → ED 09:44
DX: F32.9 Major depressive disorder, single episode, unspecified (principal); N39.0 Urinary tract infection, site not specified; F19.10 Other psychoactive substance abuse, uncomplicated; I10 Essential (primary) hypertension; F17.200 Nicotine dependence, unspecified, uncomplicated; F12.10 Cannabis abuse, uncomplicated; Z79.899 Other long term (current) drug therapy
CPT/HCPCS: 36415; 80048; 80307; 81001; 84703; 85025; 87086; 99284; J3410; 80320; G0480

== ENCOUNTER 2020-07-08 13:16 | Emergency (ER) | payer SELFPAY ==
--- NOTE | 2020-07-08 14:20 | Emergency Department Report ---
HPI - General Chief Complaint: Psych Time Seen by Provider: 07/08/20 13:32 - HPI HPI: This is a 49-year-old -[place] female presents to the emergency department via EMS for a mental health evaluation. The patient has depression and has been having suicidal ideations over the past few days. She does not have any particular plan as to how she would harm herself. The patient does have a history of depression and bipolar disorder. She says that she has been off of her medications, Seroquel and Prozac, over the past 3 days as she has not gotten any prescriptions filled. She also has a past medical history of hypertension. The patient says that her depression has kept her from doing her job appropriately and she lost her job about 1 week ago. She is currently living with her daughter but says that they do not have a good relationship at this time. She says that she has no family support. She denies any hallucinations or homicidal ideations. ED Past Medical Hx - Past Medical History Hx Hypertension: Yes Hx Congestive Heart Failure: No Hx Diabetes: No Hx Psychiatric Treatment: Yes (depression) Hx Asthma: No Hx COPD: No Additional medical history: Decreased Kidney Function - Surgical History Additional Surgical History: X 5 - Social History Smoking Status: Current Every Day Smoker Substance Use Type: Cocaine, Marijuana - Medications Home Medications: Home Medications Medication Instructions Recorded Confirmed Last Taken Type Doxepin [SINEquan] 10 mg PO QHS #30 capsule 08/13/19 07/08/20 Unknown Rx Escitalopram Oxalate [Lexapro] 5 mg PO QDAY #30 tablet 08/13/19 07/08/20 Unknown Rx busPIRone [Buspar] 5 mg PO BID #60 tab 08/13/19 07/08/20 Unknown Rx ED Review of Systems ROS: Stated complaint: SI Other details as noted in HPI Comment: All other systems reviewed and negative Constitutional: denies: chills, fever Eyes: denies: eye pain, vision change ENT: denies: ear pain, throat pain Respiratory: denies: cough, shortness of breath Cardiovascular: denies: chest pain, palpitations Gastrointestinal: denies: abdominal pain, vomiting Musculoskeletal: denies: back pain, arthralgia Neurological: denies: headache, weakness Psychiatric: depression, suicidal thoughts. denies: auditory hallucinations, visual hallucinations, homicidal thoughts Physical Exam - Physical Exam Vital Signs: Vital Signs 07/08/20 13:30 Temperature 98.8 F Pulse Rate 85 Respiratory 18 Rate Blood Pressure 128/83 O2 Sat by Pulse 100 Oximetry Physical Exam: GENERAL: The patient is well-developed well-nourished. HENT: Normocephalic. Atraumatic. Patient has moist mucous membranes. EYES: Extraocular motions are intact. NECK: Supple. Trachea is midline. CHEST/LUNGS: Clear to auscultation. There is no respiratory distress noted. HEART/CARDIOVASCULAR: Regular. There is no tachycardia. There is no murmur. ABDOMEN: Abdomen is soft, nontender. Patient has normal bowel sounds. SKIN: Skin is warm and dry. NEURO: The patient is awake, alert, and oriented. The patient is cooperative. Normal speech. MUSCULOSKELETAL: There is no tenderness or deformity. There is no limitation range of motion. ED Course Vital Signs 07/08/20 13:30 Temperature 98.8 F Pulse Rate 85 Respiratory 18 Rate Blood Pressure 128/83 O2 Sat by Pulse 100 Oximetry ED Medical Decision Making - Lab Data Result diagrams: 07/08/20 14:30 07/08/20 14:30 - Medical Decision Making This patient presents to the emergency department with depression and suicidal ideations. For this reason she has been made a 1013. Labs show a urinary tract infection and a UDS positive for cocaine and marijuana. She does not appear acutely intoxicated. She has been started on Macrobid for the urinary tract infection. Vital signs have been reassuring throughout her ED course. The patient will be seen by the psychiatric team and she is medically cleared for psychiatric placement at this time. Critical Care Time: No Critical care attestation.: If time is entered above; I have spent that time in minutes in the direct care of this critically ill patient, excluding procedure time. ED Disposition Clinical Impression: Depression, Suicidal ideations Disposition: [id number]/TX-[id number] PSY HOSP/PSY UNIT Is pt being admited?: No Condition: Stable Time of Disposition: 18:51
[2020-07-08 15:14] LABS: Basophils # (Auto) 0.2 K/mm3 (0.0-0.1); Basophils % (Auto) 2.5 % (0.0-1.8); Eosinophils # (Auto) 0.2 K/mm3 (0.0-0.4); Eosinophils % (Auto) 2.5 % (0.0-4.3); Hematocrit 41.4 % (30.3-42.9); Hemoglobin 13.6 gm/dl (10.1-14.3); Lymphocytes # (Auto) 2.4 K/mm3 (1.2-5.4); Lymphocytes % (Auto) 33.1 % (13.4-35.0); Mean Corpuscular HGB Conc 33 % (30-34); Mean Corpuscular Volume 90 fl (79-97); Monocytes # (Auto) 0.3 K/mm3 (0.0-0.8); Monocytes % (Auto) 4.5 % (0.0-7.3); Platelet Count 328 K/mm3 (140-440); Red Blood Count 4.59 M/mm3 (3.65-5.03); Red Cell Distribution Width 15.3 % (13.2-15.2)
[2020-07-08 15:18] LABS: BUN/Creatinine Ratio 23; Blood Urea Nitrogen 18 mg/dL (7-17); Calcium 10.7 mg/dL (8.4-10.2); Hemolysis Index 3
[2020-07-08 17:29] LABS: Amphetamine Screen,Urine Negative; Benzodiazepines Screen,Urine Negative; Methadone Screen,Urine Negative; Opiate Screen,Urine Negative
[2020-07-08 17:33] LABS: Bacteria,Urine 1+ /HPF (Negative); Bilirubin,Urine NEG (Negative); Blood,Urine SM (Negative); Color,Urine Amber (Yellow); Hyaline Casts,Urine 3 /LPF; Mucus,Urine 2+ /HPF; Triple Phosphate Crystal,Urine 2+
[2020-07-08 17:52] LABS: Cannabinoid Screen,Urine PRESUMPTIVE POSITIVE; Cocaine Screen,Urine PRESUMPTIVE POSITIVE
[2020-07-08] MEDS: NITROFURANTOIN MONOHYD/M-CRYST 100 MG CAP PO SCH ×2 (19:40→22:32)
[2020-07-09 09:42] VITALS: BP 131/88
== END 2020-07-09 10:00 ==
LOC: ED 13:16
DX: F32.9 Major depressive disorder, single episode, unspecified (principal); I10 Essential (primary) hypertension; F17.200 Nicotine dependence, unspecified, uncomplicated; F12.10 Cannabis abuse, uncomplicated; F14.10 Cocaine abuse, uncomplicated; Z79.899 Other long term (current) drug therapy; Z20.828 Contact with and (suspected) exposure to other viral communicable diseases
CPT/HCPCS: 36415; 80048; 80307; 81001; 85025; 87086; 99285; U0003; 80320; G0480